=== PATIENT | female | born 1995 | race African-American/Black ===

== ENCOUNTER 2020-01-18 18:43 | Emergency (ER) | payer BC, SELFPAY ==
[2020-01-18] VITALS (10 sets, daily range): BP systolic 96–142; BP diastolic 61–91; PULSE 62–109; RESP 14–28; TEMP 37.1; O2SAT 98–100
--- NOTE | 2020-01-18 18:51 | ED.GENADULT ---
HPI - General Adult General Chief complaint: Unspecified Stated complaint: sob, alcohol withdrawal Time Seen by Provider: 01/18/20 18:46 Source: patient and family Mode of arrival: ambulatory Limitations: no limitations History of Present Illness HPI narrative: Patient is a 24-year-old female with a history of alcohol abuse who presents for evaluation of nausea, vomiting, feeling shaky. Patient reports that she has been drinking 2 glasses of wine to half a pint daily for the past 5 years. Patient reports that she stopped drinking alcohol on Friday in an effort to detox, but patient has been nauseated and vomited most of yesterday with decreased oral intake today as well as feeling generally unwell and shaky. Patient reports myalgias. She denies fever, chills, cough, congestion. She denies any chest pain. No abdominal pain at this point. No dysuria or hematuria. Patient states she had a recent negative test. Patient denies thoughts of hurting herself or hurting others. She recently started sertraline and new anxiety medication. She otherwise feels well supported by her family. Related Data Home Medications Medication Instructions Recorded Confirmed famotidine 20 mg PO DAILY 01/18/20 01/18/20 sertraline 25 mg PO DAILY 01/18/20 01/18/20 valacyclovir [Valtrex] 500 mg PO Q12H 01/18/20 01/18/20 Allergies Allergy/AdvReac Type Severity Reaction Status Date / Time No Known Allergies Allergy Verified 01/18/20 18:53 Review of Systems Review of Systems: Narrative: CONSTITUTIONAL: Denies fever, chills, or sweats. EYES: Denies visual changes, redness, or discharge. ENT: Denies rhinorrhea, congestion, sore throat, or otalgia. CARDIOVASCULAR: Denies chest pain, reports palpitations, denies edema RESPIRATORY: Denies cough or dyspnea. GASTROINTESTINAL: Denies abdominal pain,reports nausea and vomiting GENITOURINARY: Denies dysuria or hematuria. SKIN: Denies rash or itching. MUSCULOSKELETAL: Denies back pain, joint pain, reports myalgias NEUROLOGIC: Denies headache, numbness, or weakness. PSYCHIATRIC: Reports anxiety PMFSH Past Medical History Medical History (Updated 01/18/20 @ 20:26 by Rita Srivastava MD) Alcohol abuse Anxiety Surgical History Surgical History (Updated 01/18/20 @ 19:10 by Rita Srivastava MD) No pertinent past surgical history Social History Social History (Updated 01/18/20 @ 19:11 by Rita Srivastava MD) Smoking status: Never smoker Alcohol intake: former Drinks per week: 20 Substance use: never Living arrangements: with family Gender identity (if verbalized by the patient): Female Exam Narrative: Exam Narrative: GENERAL: Awake, alert, conversant, tearful HEAD: Normocephalic, atraumatic. EYES: PERRLA and EOMI. ENT: Nares clear, no rhinorrhea or epistaxis. Mucous membranes moist. NECK: Supple. CHEST: No respiratory distress, breathing even and non labored HEART: Tachycardic rate, sinus rhythm ABDOMEN:Non distended, non tender EXTREMITIES: Normal range of motion. No edema. SKIN: Warm, dry, no rash. NEURO:No focal deficits. Alert and oriented x3 Course Course Emergency Course: Patient presented to the emergency department for evaluation of nausea, dehydration with recent alcohol abstinence. Patient with mild tachycardia at the time of assessment. Laboratory work-up is reassuring, mild hypokalemia which we were able to replenish orally without vomiting. Patient felt much improved following fluids. Many of her symptoms are due to alcohol withdrawal, no sign of delirium tremens at this point. Pt reassessed and is resting comfortably. Patient will be discharged home with antiemetic, given strict return precautions. Vital Signs Vital signs: Vital Signs Temperature 37.1 C 01/18/20 18:48 Pulse Rate 109 H 01/18/20 18:48 Respiratory Rate 21 H 01/18/20 18:48 Blood Pressure 129/91 H 01/18/20 18:48 Pulse Oximetry 100 01/18/20 18:48 Temperature 37.1 C
--- NOTE | 2020-01-18 19:06 | ECG_ITS ---
Measurements Intervals [place] Rate: 65 P: 50 NC: 150 QRS: 50 QRSD: 84 T: 34 QT: 412 QTc: 431 Interpretive Statements SINUS RHYTHM RSR' IN V1 OR V2, PROBABLY NORMAL VARIANT BORDERLINE T WAVE ABNORMALITY- ANTERIOR LEADS BASELINE WANDER- I, II BORDERLINE ECG Electronically Signed On 01-19-2020 7:13:43 CDT by Josue Purcell D.O.
[2020-01-18 19:25] LABS: Basophils Percent Auto 0.3 % (0.2-1.2); Eosinophils Percent Auto 0.1 % (0-4.4); Hematocrit 37.1 % (37.0-47.0); Hemoglobin 12.4 g/dL (12.0-15.0); Immature Granulocyte Absolute 0.03 K/mm3 (0.00-0.031); Immature Granulocyte Percent A 0.3 % (0-0.5); Lymphocytes Absolute Auto 2.96 K/mm3 (0.9-3.2); Lymphocytes Percent Auto 33.2 % (18.3-44.2); Mean Corpuscular HGB Conc 33.4 g/dl (32-36); Mean Corpuscular Hemoglobin 27.9 pg (26-34); Mean Corpuscular Volume 83.6 fl (80-100); Mean Platelet Volume 9.5 fl (7.4-10.4); Monocytes Absolute Auto 0.5 K/mm3 (0.1-0.6); Monocytes Percent Auto 5.8 % (2.6-8.5); Neutrophils Absolute Auto 5.4 K/mm3 (1.3-6.7); Neutrophils Percent Auto 60.3 % (45.5-73.1); Platelet Count Result 353 k/mm3 (150-375); Red Blood Count 4.44 M/mm3 (4.2-5.4); Red Cell Distribution Width 12.3 % (11.5-14.5); White Blood Count 8.9 K/mm3 (4.5-10.0)
[2020-01-18] MEDS: ONDANSETRON INJ 4 MG/2 ML VIAL IV PUSH (19:28)
[2020-01-18] MEDS: SODIUM CHLORIDE 0.9% IV 1,000 ML 999 ML IV CONT (19:28)
[2020-01-18] MEDS: LORAZEPAM INJ 2 MG/ML VIAL 0.5 MG IV PUSH (19:29)
[2020-01-18 19:37] LABS: Alanine Aminotransferase 13 U/L (4-35); Albumin Level 4.7 g/dL (3.5-5.1); Alkaline Phosphatase 54 U/L (38-126); Aspartate Amino Transferase 22 U/L (14-36); Blood Urea Nitrogen 5 mg/dL (7-17); Carbon Dioxide 21 mmol/L (22-30); Chloride 103 mmol/L (98-107); Estimated Glomerular Filt Rate > 60; Glucose 94 mg/dL (65-105); Lipase 68 U/L (23-300); Magnesium 2.1 mg/dL (1.6-2.3); Potassium 3.1 mmol/L (3.4-5.0); Sodium 136 mmol/L (137-145)
[2020-01-18 20:44] LABS: Add Urine Microscopic? YES; Appearance Urine Clear (Clear); Bacteria Urine Trace /hpf; Bilirubin Urine Negative (Negative); Blood Urine Negative (Negative); Color Urine Straw (Yellow); Glucose Urine UA Negative (Negative); Ketones Urine 1+ mg/dL (Negative); Leukocyte Esterase Ur Negative LEU/UL (Negative); Mucus Urine Rare /lpf; Nitrate Urine Negative (Negative); Protein Urine Negative (Negative); RBC Urine 0-2 /hpf (0-2); Specific Grav Ur 1.005 (1.001-1.035); Squamous Epithelial Cell Urine Moderate /hpf (Few); Urobilinogen Urine Negative mg/dL (<2.0); WBC Urine 0-3 /hpf
[2020-01-18] MEDS: POTASSIUM CHLORIDE 20 MEQ PACKET (FOR LIQUID) 40 MEQ PO (20:46)
== END 2020-01-18 23:18 | disposition home or self-care (01) ==
PROVIDERS: Emergency Provider Emergency Medicine; PCP Physician Assistant
DX: E86.0 Dehydration (principal); F41.9 Anxiety disorder, unspecified
CPT/HCPCS: 36415; 80053; 81001; 81025; 83690; 83735; 84100; 85025; 93005; 96361; 96365; 96366; 96375; 99284; A9270; J2060; J2405; J3411; J3475; J7030; J7121

== ENCOUNTER 2021-07-01 18:15 | Emergency (ER) | payer BC, SELFPAY ==
[2021-07-01 18:24] VITALS: BP 127/93; PULSE 85; RESP 16; TEMP 36.6; O2SAT 99
--- NOTE | 2021-07-01 18:57 | ED.GENADULT ---
HPI - General Adult General Chief complaint: Upper Respiratory Infection Stated complaint: sinus infection Source: patient Mode of arrival: ambulatory Limitations: no limitations History of Present Illness HPI narrative: Patient is a 25-year-old -[place] female who presents to the [facility] via POV for evaluation of a sore throat that began today. She reports sinus pressure and ear pressure as well. She denies taking OTC meds for symptoms. Nothing improves or worsen symptoms. Patient denies known exposure to sick contacts. She is not vaccinated against Covid. Related Data Home Medications Medication Instructions Recorded Confirmed famotidine 20 mg PO DAILY 01/18/20 01/18/20 sertraline 25 mg PO DAILY 01/18/20 01/18/20 valacyclovir [Valtrex] 500 mg PO Q12H 01/18/20 01/18/20 Allergies Allergy/AdvReac Type Severity Reaction Status Date / Time No Known Allergies Allergy Verified 01/18/20 18:53 Review of Systems Review of Systems: Pertinent negatives: fever, chills, poor p.o. intake, myalgias, flu-like symptoms, ear pain/drainage, headache, nasal congestion, rhinorrhea, lymphadenopathy, dizziness, LOC, inability to swallow, drooling, hoarseness, halitosis, abdominal pain, nausea, vomiting, diarrhea, cough, wheezing, sob, chest pain, heart murmurs, and heart palpations. PMFSH Past Medical History Medical History Alcohol abuse Anxiety Surgical History Surgical History No pertinent past surgical history Social History Social History Smoking status: Never smoker Alcohol intake: former Drinks per week: 20 Substance use: never Gender identity (if verbalized by the patient): Female Comments I have reviewed and agree with the patient's past medical, surgical, social, and family hx as documented by the RN. There is no relevant family history pertinent to the presenting complaint. Exam Narrative: GENERAL: Well-appearing, well-nourished, and in no acute distress. HEAD: Normocephalic, atraumatic. Moderate maxillary sinus tenderness appreciated upon palpation. No facial swelling appreciated. EYES: PERRLA and EOMI. No evidence of erythema, swelling, or drainage. ENT: Right TM is severely erythematous although according to patient this is a abnormality from childhood. Left TM is normal. Bilateral external ears and ear canals normal. No TM perforation. Nares clear, no rhinorrhea or epistaxis. Bilateral turbinates without erythema/ swelling. Mucous membranes moist and pink. Uvula is midline without erythema and swelling. No evidence of petechial rash, cobblestoning, lesions, ulcers, erythema, swelling, exudates, peritonsillar abscess, tenting, or drooling. Breath odor and voice normal. NECK: Supple. No Lymphadenopathy or nuchal rigidity appreciated. CHEST: Bilateral lung rutherford are clear to auscultation. No respiratory distress. No evidence of cough or pleuritic cp upon examination. HEART: Regular rate and rhythm. No murmur, gallop, or rub heard. EXTREMITIES: Normal range of motion. No edema. SKIN: Warm, dry, no rash. NEURO: No focal deficits. Alert and oriented x3. Course Vital Signs Vital signs: Vital Signs Temperature 97.8 F 07/01/21 18:24 Pulse Rate 85 07/01/21 18:24 Respiratory Rate 16 07/01/21 18:24 Blood Pressure 127/93 H 07/01/21 18:24 Pulse Oximetry 99 07/01/21 18:24 Temperature 97.8 F 07/01/21 18:24 Pulse Rate 85 07/01/21 18:24 Respiratory Rate 16 07/01/21 18:24 Blood Pressure 127/93 H 07/01/21 18:24 Pulse Oximetry 99 07/01/21 18:24 Due to an elevated blood pressure, I had a detailed discussion with the patient and/or guardian regarding the need for follow-up with their primary care provider within the next 3-4 days. Patient verbalized understanding and agreed. Medical De
== END 2021-07-01 19:07 | disposition home or self-care (01) ==
PROVIDERS: Emergency Provider Nurse Practitioner Family; PCP Physician Assistant
DX: J06.9 Acute upper respiratory infection, unspecified (principal); F41.9 Anxiety disorder, unspecified
CPT/HCPCS: 87081; 87880; 99213; G0463

== ENCOUNTER 2021-07-11 14:10 | Emergency (ER) | payer BC, SELFPAY ==
[2021-07-11 14:22] VITALS: BP 116/77; PULSE 96; RESP 16; TEMP 37.1; O2SAT 100
--- NOTE | 2021-07-11 16:41 | ED.GENADULT ---
HPI - General Adult General Chief complaint: Upper Respiratory Infection Stated complaint: sinus infection Source: patient Mode of arrival: ambulatory Limitations: no limitations History of Present Illness HPI narrative: Patient is a 25-year-old -Gabonese female who presents to the [facility] via POV for evaluation of a sinus problem that has been present for 2 weeks. Additionally, she reports sinus pain and pressure, nasal congestion, rhinorrhea, and headaches. Additionally, she reports relief with Mucinex and prednisone. She was seen in this facility for similar problem approximately 2 weeks ago and prescribed prednisone at that time. Nothing worsens symptoms. Patient denies known exposure to sick contacts. She is not vaccinated against Covid. Related Data Home Medications Medication Instructions Recorded Confirmed acyclovir 400 mg PO DAILY 07/11/21 07/11/21 Allergies Allergy/AdvReac Type Severity Reaction Status Date / Time No Known Allergies Allergy Verified 07/11/21 14:13 Review of Systems Review of Systems: Denies history of COPD, bronchitis, asthma, and pneumonia. Denies current/past tobacco use. Pertinent negatives: fever, sweats, chills, change in appetite, fatigue, skin color changes, headache, dizziness, lymphadenopathy, ear pain/drainage, chest pain, heart murmurs, heart palpitations, shortness of breath, wheezing, cyanosis, hemoptysis, hoarseness, orthopnea, pleuritic pain, nausea, vomiting, diarrhea, and myalgias. PMFSH Past Medical History Medical History Alcohol abuse Anxiety Surgical History Surgical History No pertinent past surgical history Social History Social History Smoking status: Never smoker Alcohol intake: former Drinks per week: 20 Substance use: never Gender identity (if verbalized by the patient): Female Exam Narrative: GENERAL: Well-appearing, well-nourished, and in no acute distress. HEAD: Normocephalic, atraumatic. Moderate maxillary and frontal sinus tenderness appreciated upon palpation. No facial swelling appreciated. EYES: PERRLA and EOMI. No evidence of erythema, swelling, or drainage. ENT: Bilateral turbinates are moderately swollen. Bilateral external ears and ear canals normal. Bilateral TMs are normal.No TM perforation. Nares clear, no rhinorrhea or epistaxis. Bilateral turbinates without erythema. Mucous membranes moist and pink. Uvula is midline without erythema and swelling. No evidence of petechial rash, cobblestoning, lesions, ulcers, erythema, swelling, exudates, peritonsillar abscess, tenting, or drooling. Breath odor and voice normal. NECK: Supple. No Lymphadenopathy or nuchal rigidity appreciated. CHEST: Bilateral lung rutherford are clear to auscultation. No respiratory distress. No evidence of cough or pleuritic cp upon examination. HEART: Regular rate and rhythm. No murmur, gallop, or rub heard. EXTREMITIES: Normal range of motion. No edema. SKIN: Warm, dry, no rash. NEURO: No focal deficits. Alert and oriented x3. Course Vital Signs Vital signs: Vital Signs Temperature 98.7 F 07/11/21 14:22 Pulse Rate 96 07/11/21 14:22 Respiratory Rate 16 07/11/21 14:22 Blood Pressure 116/77 07/11/21 14:22 Pulse Oximetry 100 07/11/21 14:22 Temperature 98.7 F 07/11/21 14:22 Pulse Rate 96 07/11/21 14:22 Respiratory Rate 16 07/11/21 14:22 Blood Pressure 116/77 07/11/21 14:22 Pulse Oximetry 100 07/11/21 14:22 Reviewed Medical Decision Making Differential Diagnosis Differential Diagnosis: Allergic rhinitis, ABRS, acute viral sinusitis, strep pharyngitis, nasopharyngitis, bronchitis, pneumonia, AOM, otitis externa, viral URI, influenza Medical Records Medical records reviewed: Yes I reviewed the external patient's medical records
== END 2021-07-11 14:52 | disposition home or self-care (01) ==
PROVIDERS: Emergency Provider Nurse Practitioner Family; PCP Physician Assistant
DX: J01.90 Acute sinusitis, unspecified (principal)
CPT/HCPCS: 99213; G0463

== ENCOUNTER 2021-12-24 11:27 | Outpatient (CLI) | payer BC, SELFPAY ==
--- NOTE | ~2021-12-24 | US_ITS ---
EXAMINATION: US OB /maternal detail DATE: 12/24/2021 12:08 INDICATION: Assess anatomy during second trimester . TECHNIQUE: Multiple obstetric sonographic images performed. FINDINGS: There is a single living fetus in breech presentation. The placenta is anterior and low-lying with c audal margin 1.2 cm from the internal cervical os. Amniotic fluid volume is subjectively normal. Fet al heart rate of 142 beats per minute. The following anatomy was identified as normal: Ventricles, choroid plexus, falx and cava septum pellucidum Cerebellum and cisterna magna Nuchal fold Upper lip Spine Four-chamber heart. The left and right ventricular outflow tract views are of insufficient resolution for diagnostic assessment. Diaphragm Stomach Kidneys Bladder 3 vessel cord and cord insertion Bilateral upper and lower extremities including hands and feet The following biometric data were obtained: BPD: 4.4 cm -> 19 weeks 2 days Head circumference: 16.3 cm -> 19 weeks 0 days Abdominal circumference: 13.3 cm -> 18 weeks 6 days Femur length: 2.7 cm -> 18 weeks 1 days These measurements are concordant. Head circumference to abdominal circumference ratio: 1.22 (normal range 1.09-1.26). Estimated weight: 246 g (+/-) 37 g. or 9 oz. (+/-) 1o oz. IMPRESSION: 1. Single living fetus with breech presentation with heart rate of 142 bpm. 2. Gestational age by ultrasound of 18 weeks 6 day(s) (+/-) 1 week 2 day(s) with ultrasound estimat ed date of delivery (FERNANDO) of 05/21/2022. Estimated weight is 45th percentile by Hadlock criteria when 05/23/2022 is used as the FERNANDO. Please correlate with clinical information or earlier ultrasounds for most accurate FERNANDO. 3. Normal survey aside from nondiagnostic left and right ventricular outflow tract views. 4. Low-lying anterior placenta with caudal margin 1.2 cm from the internal cervical os. Reviewed, dictated and finalized at location B. IMPRESSION: 1. Single living fetus with breech presentation with heart rate of 142 b pm. 2. Gestational age by ultrasound of 18 weeks 6 day(s) (+/-) 1 week 2 day(s) w ith ultrasound estimated date of delivery (FERNANDO) of 05/21/2022. Estimated w eight is 45th percentile by Hadlock criteria when 05/23/2022 is used as the FERNANDO. Please correlate with clinical information or earlier ultrasounds for most accu rate FERNANDO. 3. Normal survey aside from nondiagnostic left and right ventricular outf low tract views. 4. Low-lying anterior placenta with caudal margin 1.2 cm from the internal cerv ical os.
== END 2021-12-24 11:28 ==
PROVIDERS: Visit Provider Obstetrics & Gynecology Gynecology
DX: O44.42 Low lying placenta NOS or without hemorrhage, second trimester (principal); Z3A.18 18 weeks gestation of pregnancy
CPT/HCPCS: 76805

== ENCOUNTER → 2022-01-23 10:53 | Outpatient (CLI) | payer BC, SELFPAY ==
--- NOTE | ~2022-01-23 | US_ITS ---
EXAMINATION: US OB limited DATE: 01/23/2022 11:19 INDICATION: Low-lying placenta, assess ventricular outflow tracts, second trimester TECHNIQUE: Real-time ultrasound of the pelvis was performed. The interpreting radiologist was not pre sent for the study. COMPARISON: 12/24/2021 FINDINGS: There is a single living fetus in breech presentation. The placenta is anterior and 2.3 cm from the internal cervical os. cardiac activity and movement are noted. heart rate is 146 beats per minute (bpm). The amniotic fluid index is subjectively normal. The ventricular outfl ow tracts of the heart appear normal. IMPRESSION: 1. Single living fetus in breech presentation. 2. Normal placenta position. 3. Normal-appearing ventricular outflow tracts of the heart. Reviewed, dictated and finalized at location A.
== END ==
PROVIDERS: Visit Provider Obstetrics & Gynecology Gynecology
DX: O44.42 Low lying placenta NOS or without hemorrhage, second trimester (principal); Z3A.18 18 weeks gestation of pregnancy
CPT/HCPCS: 76815

== ENCOUNTER → 2022-02-20 13:52 | Outpatient (CLI) | payer BC, SELFPAY ==
--- NOTE | ~2022-02-20 | US_ITS ---
EXAMINATION: US OB limited DATE: 02/20/2022 14:16 INDICATION: Low-lying placenta during second trimester TECHNIQUE: Real-time ultrasound of the pelvis was performed. The interpreting radiologist was not pre sent for the study. COMPARISON: 01/23/2022 FINDINGS: There is a single living fetus in vertex presentation. The placenta is anterior and not low-lying wi th caudal margin >4 cm from the internal cervical os. heart rate is 154 beats per minute (bpm). The amniotic fluid volume is subjectively normal. IMPRESSION: 1. Single living fetus in vertex presentation with heart rate of 154 bpm. 2. Normal anterior placenta which is not low-lying with caudal margin >4 cm from the internal cervica l os Reviewed, dictated and finalized at location B. IMPRESSION: 1. Single living fetus in vertex presentation with heart rate of 154 bpm . 2. Normal anterior placenta which is not low-lying with caudal margin >4 cm fro m the internal cervical os
== END ==
PROVIDERS: PCP Physician Assistant; Visit Provider Obstetrics & Gynecology Gynecology
DX: O44.42 Low lying placenta NOS or without hemorrhage, second trimester (principal); Z3A.28 28 weeks gestation of pregnancy
CPT/HCPCS: 76815

== ENCOUNTER 2022-03-30 06:36 | Outpatient (RCR) | payer BC, SELFPAY ==
[2022-03-30 07:19] VITALS: BP 133/73; PULSE 85
== END 2022-06-19 09:58 | disposition home or self-care (01) ==
LOC: ANHOBOP 06:36
PROVIDERS: PCP Physician Assistant; Visit Provider Obstetrics & Gynecology Gynecology
DX: O36.8130 Decreased fetal movements, third trimester, not applicable or unspecified (principal); Z3A.32 32 weeks gestation of pregnancy
CPT/HCPCS: 59025

== ENCOUNTER 2022-05-19 15:18 | Inpatient (IN) | payer BC, SELFPAY ==
[2022-05-19] VITALS (85 sets, daily range): BP systolic 95–153; BP diastolic 43–122; PULSE 34–212; TEMP 36.3–36.9; O2SAT 97–100; BMI 33.9
[2022-05-19 18:17] LABS: Basophils Percent Auto 0.2 % (0.2-1.2); Eosinophils Percent Auto 0.3 % (0-4.4); Hemoglobin 12.2 g/dL (12.0-15.0); Immature Granulocyte Absolute 0.07 K/mm3 (0.00-0.031); Immature Granulocyte Percent A 0.7 % (0-0.5); Lymphocytes Absolute Auto 2.03 K/mm3 (0.9-3.2); Mean Corpuscular Hemoglobin 27.2 pg (26-34); Mean Corpuscular Volume 82.6 fl (80-100); Monocytes Absolute Auto 0.6 K/mm3 (0.1-0.6); Monocytes Percent Auto 5.7 % (2.6-8.5); Neutrophils Absolute Auto 7.4 K/mm3 (1.3-6.7); Neutrophils Percent Auto 73.1 % (45.5-73.1); Platelet Count Result 244 k/mm3 (150-375); Red Blood Count 4.48 M/mm3 (4.2-5.4); Red Cell Distribution Width 15.6 % (11.5-14.5); White Blood Count 10.2 K/mm3 (4.5-10.0)
--- NOTE | 2022-05-19 18:23 | P.PNAN_ITS ---
Anes - Eval Pre Procedure Procedure: labor epidural Date/Time: 05/19/22 18:23 Pre Op Diagnosis: Contractions Patient Data Age: 26 Gender: F Height: Weight: Allergies Allergy/AdvReac Type Severity Reaction Status Date / Time No Known Allergies Allergy Verified 07/11/21 14:13 Home Medications Medication Instructions Recorded Confirmed Type acyclovir 400 mg tablet 400 mg PO DAILY 07/11/21 03/30/22 History ergocalciferol (vitamin D2) 1,250 50,000 unit PO WEEKLY 03/30/22 03/30/22 History mcg (50,000 unit) capsule (Vitamin D2) ferrous sulfate 325 mg (65 mg 325 mg PO DAILY 03/30/22 03/30/22 History iron) tablet hydroxyzine pamoate 25 mg capsule 25 mg PO HS 03/30/22 03/30/22 History vit no.95-ferrous 1 tablet PO DAILY 03/30/22 03/30/22 History fumarate 28 mg-folic acid 800 mcg tablet () sertraline 50 mg tablet 50 mg PO DAILY 03/30/22 03/30/22 History Laboratory Tests 05/19/22 05/19/22 18:07 18:07 WBC Pending RBC Pending Hgb Pending Hct Pending MCV Pending MCH Pending MCHC Pending RDW Pending Plt Count Pending MPV Pending Immature Gran % (Auto) Pending Neut % (Auto) Pending Lymph % (Auto) Pending [place] % (Auto) Pending Eos % (Auto) Pending Baso % (Auto) Pending Lymph # (Auto) Pending [place] # (Auto) Pending Eos # (Auto) Pending Baso # (Auto) Pending Abs Immat Gran (auto) Pending Absolute Neuts (auto) Pending Absolute Nucleated RBC Pending Nucleated RBC % Pending RPR Pending Patient hx anesthesia problems: none Family hx anesthesia problems: none Results Review: All pre-operative results and documents have been reviewed as part of the pre- operative evaluation. [facility] Past Medical History Medical History Alcohol abuse Anxiety Surgical History Surgical History No pertinent past surgical history Family History Family History Mother Hypertension Fibroids Social History Social History Smoking status: Never smoker Alcohol intake: former Drinks per week: 20 Substance use: never Gender identity (if verbalized by the patient): Female Spiritual care concerns: No Exam Day of Procedure 05/19/22 18:23 Patient weight: obese Heart: regular rate and rhythm Lungs: normal air movement Airway: Mallampati scale class III Neurological: alert and oriented
--- NOTE | 2022-05-19 19:12 | LDADM ---
This patient, Kira Carroll, was admitted to Labor/Delivery/Recovery 107 on 05/19/22 at 15:18. Plans for labor, pain management and were discussed with patient. Patient/family oriented to hospital policies and general routines including ID bracelet, bed and alarms, visiting hours, pain management, procedures, bathroom and other care routines, personal items, smoking policy, room service/diet and guest tray routines, infant security routines, and visiting hours. Patient/Family are encouraged to report perceived risks to care and to ask questions if they do not understand what they are told or what they should do. See OBIX for further documentation.
[2022-05-19] MEDS: LACTATED RINGERS 1,000 ML 125 ML IV CONT ×2 (20:22→21:01)
[2022-05-19] MEDS: ONDANSETRON INJ 4 MG/2 ML VIAL IV PUSH (22:05)
[2022-05-20] VITALS (307 sets, daily range): BP systolic 95–163; BP diastolic 46–106; PULSE 61–209; RESP 18; TEMP 37–39.3; O2SAT 91–100
[2022-05-20] MEDS: OXYTOCIN 30 UNITS/NS 500 ML 30 UNITS/500 ML BAG IV CONT (01:07)
[2022-05-20] MEDS: LACTATED RINGERS 1,000 ML 125 ML IV CONT ×2 (06:55→14:25)
[2022-05-20 07:33] LABS: Rapid Plasma Reagin Non-Reactive (NonReactive)
--- NOTE | 2022-05-20 07:33 | WPDOBADMIT ---
Obstetrics - Admit Note Admission Note: record reviewed. No pertinent additions to the history and/or any subsequent changes in the physical findings that are not consistent with the expected course of the were found. Additions to the history and/or subsequent changes in the physical findings follow. Pt had SROM with thin meconium stained amniotic fluid.
--- NOTE | 2022-05-20 07:35 | PM.OBPNLAB ---
Pain Control Date/time seen: 05/20/22 07:25 Pain control: epidural Pelvic Exam Comments: 7cm per RN's previous exam. Contractions Monitor mode: Internal Contraction pattern: Regular Contraction intensity: Strong/Firm Status status: Category ll Assessment and Plan Assessment: active labor Plan: continuous present management Comments: Tosha is comfortable, resting on her right side with a peanut ball between her knees. Her partner and sister are present and supportive. She denies pain, feels occasional rectal pressure. Pitocin is currently off. Discussed plan of care and normal expectations for labor and . Anticipate vaginal .
[2022-05-20] MEDS: ACETAMINOPHEN 500 MG TABLET 1000 MG PO (11:10)
[2022-05-20] MEDS: AMPICILLIN 2 GM/NS 100 ML 2 GM/100 ML BAG IVPB (14:23)
[2022-05-20] MEDS: OXYTOCIN 30 UNITS/NS 500 ML 30 UNITS/500 ML BAG 125 UNITS IV CONT (18:59)
--- NOTE | 2022-05-20 19:07 | PM.OBPNLAB ---
Pain Control Date/time seen: 05/20/22 1700 Pain control: epidural Pelvic Exam Dilation (cm): 10 Contractions Monitor mode: Internal Contraction pattern: Regular Contraction intensity: Strong/Firm Status status: Category ll Assessment and Plan Comments: CNM to bedside at 1552. Pt not pushing at that time. Discussed plan of care with Kira, her partner, and a family member. Discussed option of continuing to push and attempting different pushing and positioning maneuvers, or electing for section. Pt desired to continue pushing. Assisted her in repositioning to hands and knees. A sheet was draped across her buttocks and gentle tension applied. CNM an RN gently alternated pressure on either side of the sheet to assist the maternal hips in a quick rocking motion. After 5-6 contractions, she was then repositioned onto her back. maternal pushing efforts resumed with bringing her ankles together in a butterfly portion position. Discussed updates with maternal pushing efforts with Dr. Elena on the telephone at about 1700. The fetus continued to be in occiput posterior position but descent continued with maternal pushing efforts.
--- NOTE | 2022-05-20 19:18 | PM.OBPRVD ---
OB - Delivery Note Procedure Delivery date: 05/20/22 Procedure: Intrapartal Events: Other (Maternal fever) Delivery augmentation: Pitocin Delivery monitor: External FHT, External Uterine and Internal Uterine Route of delivery: Episiotomy description: None Laceration Description: Perineal - 2nd Degree and Vaginal (1st degree) Delivery repair: vicryl Specimen: Yes Quantitative Blood Loss (ml): 150 Anesthesia type: Epidural Disposition: Floor Complications: Maternal fever. Meconium. Baby Date of : 05/20/22 Time of : 18:24 Weeks of gestation at delivery: 39 Infant gender: Female Weight (pounds): 6 Weight (ounces): 14 presentation: vertex position: Right Occiput Posterior Placenta delivery description: Spontaneous (Succenturiate lobe) Cord Vessel Description: 3 Vessels score one minute: 8 score five minutes: 9 Narrative: of a viable female . Baby born in the ROP position. placed immediately on the maternal abdomen and was dried and stimulated. The cord was doubly clamped and cut and the infant was transferred to the warmer for further care by the Peds team.
--- NOTE | 2022-05-20 19:26 | PM.OBDSVD ---
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 - Other specified abnormal immunological findings in serum Status: Acute OB - DS: Summary Hospital Course Hospital Course: uncomplicated OB Procedures : Ultrasound OB Procedures Intrapartum: Spontaneous Vag Delivery and Other (antibiotics) OB Procedures: : None Peripartum Data Delivery Method: Natural Vaginal Laceration Description: Perineal - 2nd Degree and Vaginal - 1st Degree Episiotomy description: None complications: none Status at Discharge Functional status at discharge: independent ambulation Overall status at discharge: patient is progressing back to baseline Time Spent with Patient Time attestation: Total time spent providing and/or coordinating discharge services: Exam Narrative: Alert and oriented. Mood is pleasant and cooperative. Urinating without difficulty. Denies passing any large clots. Perineum with minimal edema. Const: General: no acute distress Orientation/consciousness: patient oriented x3 Limitations: no limitations Resp: Effort & Inspection: normal respiratory effort Auscultation: clear to auscultation bilaterally Cardio: Rate: regular rate GI: Inspection: normal to inspection Neuro: General: patient oriented x3 Extrem: General: normal to inspection Psych: Appearance: grossly normal Mental Status: mental status grossly normal Affect: normal affect Thought process: Normal thought process present DS: Data Data Completed and Pending Labs on day of discharge: Labs from last 24 hours 05/19/22 18:07 RPR Non-reactive Discharge Plan Discharge Attending physician on discharge: Jeane Elena Discharging Clinician: Izzy Manriquez Anticipated Discharge Date/Time: 05/22/22 19:29 Patient Disposition: Home, Self-Care Activity: may shower Diet: as tolerated Patient Instructions: Antibiotic Form Stand Alone Forms: General Discharge Information Follow-up/Referrals: Izzy Manriquez, CNM [Certified Nurse Court Supervisor] - (6 week post follow up) Discharge Medications: New polysaccharide iron complex 150 mg iron Capsule 150 mg PO BIDWM 30 Days Qty: 60 0RF docusate sodium 100 mg Capsule 100 mg PO BID 30 Days Qty: 60 0RF ibuprofen 600 mg Tablet 600 mg PO Q6H PRN (Reason: Cramping) 30 Days Qty: 45 0RF valacyclovir [Valtrex] 500 mg Tablet 500 mg PO QHS 90 Days Qty: 90 3RF norethindrone (contraceptive) [Ortho Micronor] 0.35 mg tablet 0.35 mg PO DAILY 90 Days Qty: 84 3RF Continued ferrous sulfate 325 mg (65 mg iron) Tablet 325 mg PO DAILY sertraline 50 mg Tablet 50 mg PO DAILY ergocalciferol (vitamin D2) [Vitamin D2] 1,250 mcg (50,000 unit) Capsule 50,000 unit PO WEEKLY 90 Days Qty: 90 3RF Rx Instructions: Takes every Friday PNV cmb#95-ferrous fumarate-FA [] 28 mg iron- 800 mcg Tablet 1 tablet PO DAILY 90 Days Qty: 90 0RF Discontinued acyclovir 400 mg tablet 400 mg PO BID hydroxyzine pamoate 25 mg Capsule 25 mg PO HS Date of admission: 05/19/22 15:18 Primary Care Provider: Aixa,Bev Admitting Provider: Jeane Elena Attending physician on admission: Jeane Elena Condition: Stable
[2022-05-20] MEDS: IBUPROFEN 600 MG TABLET PO (20:27)
[2022-05-20] MEDS: BENZOCAINE 20% AER SPR (*SP) 56 GM CAN 1 SPRAY TOPICAL (20:34)
[2022-05-20] MEDS: WITCH HAZEL 40 PADS 1 PAD TOPICAL (20:34)
[2022-05-20 20:36] LABS: Barbiturate Screen Urine Negative (Negative); Benzodiazepines Screen Urine Negative (Negative)
[2022-05-20 20:46] LABS: Cannabinoid Screen Urine Negative (Negative); Cocaine Screen Urine Negative (Negative); Methadone Screen Urine Negative (Negative); Opiate Screen Urine Negative (Negative); Phencyclidine Screen Urine Negative (Negative)
[2022-05-20 21:01] LABS: Amphetamine Screen Urine Negative (Negative)
[2022-05-20] MEDS: ACETAMINOPHEN 325 MG TABLET 650 MG PO (21:40)
--- NOTE | 2022-05-20 22:02 | OBPPTRN ---
Patient transferred to post room #281 via W/C. Support person present. Oriented to unit, room, information board, rooming in, admission packet and security measures. Patient verbalizes understanding.
[2022-05-20] MEDS: ZOLPIDEM TARTRATE (*CRX) 5 MG TABLET PO (23:24)
[2022-05-21] MEDS: IBUPROFEN 600 MG TABLET PO ×4 (01:11→23:45)
[2022-05-21 03:55] VITALS: BP 135/74; PULSE 92; RESP 18; TEMP 36.8
[2022-05-21 07:40] VITALS: BP 132/78; PULSE 84; RESP 16; TEMP 36.7; O2SAT 100
[2022-05-21] MEDS: WITCH HAZEL 40 PADS 1 PAD TOPICAL (07:41)
[2022-05-21] MEDS: MULTIVIT/MIN/PREN/FOL AC/IRON TABLET 1 TAB PO (07:42)
[2022-05-21] MEDS: DOCUSATE SODIUM 100 MG CAPSULE PO ×2 (07:42→16:11)
[2022-05-21] MEDS: FERROUS SULFATE 324 MG TABLET PO (07:42)
[2022-05-21] MEDS: SERTRALINE HCL 50 MG TABLET PO (07:43)
[2022-05-21] MEDS: ACETAMINOPHEN 325 MG TABLET 650 MG PO ×2 (07:46→16:12)
--- NOTE | 2022-05-21 07:52 | PM.OBPNVD ---
OB - PN: Subj Subjective Date/time seen: 05/21/22 07:52 Patient comments: no complaints and pain well controlled baby status: doing well OB - PN: Obj Data Labs CBC & Chem 7: 05/19/22 18:07 Labs: Laboratory Results - last 24 hr 05/20/22 18:00 Urine Opiates Screen Negative Urine Methadone Screen Negative Ur Barbiturates Screen Negative Ur Phencyclidine Scrn Negative Ur Amphetamine Screen Negative U Benzodiazepines Scrn Negative Urine Cocaine Screen Negative U Cannabinoids Screen Negative OB - PN A/P Plan day: 1 Plan: routine care Comments: BP's elevated No PIH sx Time Spent With Patient Time: Total time spent is greater than 50% in coordination of care (as documented) at patient's floor/unit and/or counseling patient: Exam : Bimanual exam- vagina & uterus: other (Uterus firm, nt @U)
--- NOTE | 2022-05-21 08:36 | WPDANLDPN2 ---
Anes-Prog Note L&D Date/Time: 05/21/22 08:36 Comfortable throughout: labor and delivery Neuraxial method: epidural Epidural/Spinal procedure site: clean & non-tender Neuro status: Neuro function grossly intact. Cardiovascular status: normal Respiratory status: normal Airway patency: baseline Mental status: baseline Post-Op hydration status: normal Vital Signs: Last Vital Signs Temp 36.8 C 05/21/22 03:55 Pulse 92 05/21/22 03:55 Resp 18 05/21/22 03:55 BP 135/74 05/21/22 03:55 Pulse Ox 100 05/20/22 18:58 O2 Del Method Room Air 05/20/22 22:20 Pain score (VAS): 10/01 I/O: Intake & Output 05/20/22 05/21/22 05/21/22 23:59 07:59 15:59 Intake Total 1500 Output Total 208 Balance 1292 Post-procedural complaints: none Patient feedback: Patient satisfied with anesthetic care.
[2022-05-21 09:27] LABS: Hematocrit 29.9 % (37.0-47.0); Hemoglobin 9.8 g/dL (12.0-15.0)
--- NOTE | 2022-05-21 10:09 | PC.NURSE ---
5526 - Introductions were made to father of the baby. Mother is sleeping. Resources provided for inpatient and outpatient services using a resource guide and mom/baby guide. Father of baby voiced understanding of information and was urge to call if mother requests assistance with or has question or concerns with milk production, pumping, or feeding her . Reported to primary RN.
--- NOTE | 2022-05-21 11:42 | PCCCNOTE ---
Care Coordination. Patient referred to CC for possible mom/baby bonding, history depression, and history of marijuana use in per RN. Pt. is negative for any substances on admission. Met with pt. and family member at bedside. Pt. holding baby and reports interested in breast feeding baby. She was interested in any information on baby care such as bathing as well. RN reports there is a video for her to watch that she will provide. She appears to be bonding and interested in infant and care. Pt. interested and given information on centers including WIC as she wants to see if she would qualify for services. She plans to return home with her and baby. She reports having all necessary baby care items and good family support. She sees a counselor and is on sertaline that she plans to continue for her depression. She reports feeling good today and encouraged her to continue to watch for signs of post and to notify her doctor. Pt. very receptive to this. She denies further CC needs.
[2022-05-21 12:01] VITALS: BP 134/85; PULSE 90; RESP 18; TEMP 36.9; O2SAT 100
--- NOTE | 2022-05-21 15:10 | PC.NURSE ---
[id number] Mother called the desk for assistance. RN entered the room to assist mother with . is swaddled in the bassinet. Mother is undecided on how she wants to feed her and has decided to go to the restroom. Encouraged understanding of the benefits of skin to skin (unwrapping and placing vertically on her chest) when she gets back from the restroom. [id number] RN to the room and educates the parents on responsive feeding, how to watch for early feeding signs, frequency of feeding on demand about every 8-12 times in 24 hours (every 2-3 hours), milk production, duration of feeding, signs of adequate intake/output and how to record on the feeding sheet. cries and mother believes her is hungry. A very full diaper of urine and stool is changed, then infant placed back upright between mother's breast. After a few minutes demonstrates squirming and exploration of mother's chest going to the breast. Reviewed positioning and ear, shoulder, hip alignment, supporting the breast, asymmetrical latch (off-center), and leading with the chin with a big open side gape. Infant latched optimally to the left breast in cross cradle position. After 5 minutes detaches, placed vertically, and burps. latches optimally to the right breast using cross cradle. Education given to mother of how to visualize suck/swallow ratios and listen for drinking at the breast. Infant was able to maintain latch without discomfort to mother. Nipple care reviewed with optimal latch and good positioning. Reviewed good handwashing when or touching the breast/nipples to prevent infection. Resources used to facilitate learning were used with the visual handouts, tool, mom and baby guide. Mother voiced understanding of responsive feedings, stimulating with skin to skin, hand expressed colostrum, massage touch, talking to infant to encourage if it has been 2 -3 hours since the start of the last , to call if infant does not latch , difficulty waking, latching or there is discomfort with . Reported to the primary RN.
[2022-05-21 15:45] VITALS: BP 139/86; PULSE 90; RESP 16; TEMP 36.6; O2SAT 100
[2022-05-21] MEDS: POLYSACCHARIDE IRON COMPLEX 150 MG CAPSULE PO (16:11)
[2022-05-21 20:38] VITALS: BP 123/75; PULSE 95; RESP 18; TEMP 36.3; O2SAT 100
[2022-05-21] MEDS: valACYclovir HCL 500 MG TABLET PO (21:01)
[2022-05-21] MEDS: ZOLPIDEM TARTRATE (*CRX) 5 MG TABLET PO (23:45)
--- NOTE | 2022-05-22 07:46 | PM.OBPNVD ---
OB - PN: Subj Subjective Date/time seen: 05/22/22 07:40 Patient comments: pain well controlled Eagle baby status: other (At bedside. Receiving IV antibiotics. , pumping, formula feeding. ) Eagle feeding status: breast and bottle feeding OB - PN: Obj Data Labs CBC & Chem 7: 05/21/22 09:15 Labs: Laboratory Results - last 24 hr 05/21/22 09:15 Hgb 9.8 L Hct 29.9 L OB - PN A/P Plan day: 2 Plan: discharge home Time Spent With Patient Time: Total time spent is greater than 50% in coordination of care (as documented) at patient's floor/unit and/or counseling patient: Review of Systems Review of Systems: All systems reviewed & are unremarkable except as noted in HPI and below Exam Narrative: Awoke to CNM entry to room. Mood is pleasant and cooperative, normally fatigued. Urinating without difficulty. Denies passing any large clots. Perineum with minimal edema. +Bonding. Const: General: no acute distress Orientation/consciousness: patient oriented x3 Limitations: no limitations Resp: Effort & Inspection: normal respiratory effort Auscultation: clear to auscultation bilaterally Cardio: Rate: regular rate GI: Inspection: normal to inspection Neuro: General: patient oriented x3 Extrem: General: normal to inspection Psych: Appearance: grossly normal Mental Status: mental status grossly normal Affect: normal affect Thought process: Normal thought process present
[2022-05-22 07:55] VITALS: BP 129/83; PULSE 87; RESP 18; TEMP 36.8; O2SAT 100
[2022-05-22] MEDS: MULTIVIT/MIN/PREN/FOL AC/IRON TABLET 1 TAB PO (09:36)
[2022-05-22] MEDS: POLYSACCHARIDE IRON COMPLEX 150 MG CAPSULE PO (09:36)
[2022-05-22] MEDS: SERTRALINE HCL 50 MG TABLET PO (09:37)
[2022-05-22] MEDS: DOCUSATE SODIUM 100 MG CAPSULE PO (09:37)
--- NOTE | 2022-05-22 10:42 | PC.NURSE ---
[id number] Mother led the conversation with her experience and plan to feed her so far and her ability to independently latch optimally without discomfort at times and will continue with the plan of attempting to breastfeed, pump, and supplement to feed infant. Reminded parents to use good handwashing technique to prevent infection. Mother is feeding appropriately for growth of infant and understands stimulating infant to eat if needed. Infant has had appropriate feedings in the last 24 hours meets the outcomes for weight, output and jaundice at this time. Mother states she is confident to continue feeding her infant at home, knows when to call for assistance and denies any additional assistance or education at this time. Reinforced understanding of milk production, transition of milk, signs of adequate intake, prevention/relief of engorgement, responsive after visualizing feeding cues, the different methods of stimulating infant to breastfeed 2-3 hours after the start of the last feeding, community resources, medication information reviewed per [facility] and when to call a provider using the resource of the mom and baby guide/[facility] website. Mother voiced understanding of the education shared. Reported to the primary RN.
--- NOTE | 2022-05-22 13:40 | PC.NURSE ---
Patient discharged to a no-care bed at this time
[2022-05-25 11:38] VITALS: BP 124/87; PULSE 80; RESP 20; TEMP 36.8; O2SAT 100
== END 2022-05-22 13:40 | disposition home or self-care (01) | DRG 806 ==
LOC: ANHLDR 05-20 19:33 → ANHOB2 05-20 22:12
PROVIDERS: Advanced Practice Midwife; Admitting Provider Obstetrics & Gynecology Gynecology; PCP Physician Assistant; Visit Provider Obstetrics & Gynecology Gynecology
DX: O77.0 Labor and delivery complicated by meconium in amniotic fluid (principal); O75.2 Pyrexia during labor, not elsewhere classified; Z37.0 Single live birth; Z3A.39 39 weeks gestation of pregnancy; O36.8330 Maternal care for abnormalities of the fetal heart rate or rhythm, third trimester, not applicable or unspecified; O70.1 Second degree perineal laceration during delivery; O76 Abnormality in fetal heart rate and rhythm complicating labor and delivery
CPT/HCPCS: 36415; 80307; 84112; 85014; 85018; 85025; 86592; 86850; 86900; 86901; 88307; A9270; J0290; J1580; J2405; J2590; J2795; J7120

== ENCOUNTER 2022-11-15 18:25 | Emergency (ER) | payer BC, SELFPAY ==
[2022-11-15 18:29] VITALS: BP 140/88; PULSE 90; RESP 16; TEMP 37.2; O2SAT 100
--- NOTE | 2022-11-15 20:53 | ED.URI ---
HPI - URI/Sore Throat General Chief Complaint: Upper Respiratory Infection Stated Complaint: sore throat Time Seen by Provider: 11/15/22 20:48 History of Present Illness HPI Narrative: 26-year-old female with history of anxiety reports for sore throat that started today. Patient states her daughter was diagnosed with strep throat 2 days ago, tested positive at urgent care. Patient is reporting of a tickling sensation in her throat, denies pain with swallowing. She states she has had a history of strep in the past and this is how she felt. Denies fever, body aches, chills. She reports an intermittent dry cough the past couple of days. Denies shortness of breath or chest pain, nausea, vomiting, diarrhea, urinary complaints, congestion, ear pain. She is currently on her menstrual cycle. Reports an intermittent headache that has been relieved with Tylenol. Related Data Home Medications Medication Instructions Recorded Confirmed ferrous sulfate 325 mg (65 mg 325 mg PO DAILY 03/30/22 05/19/22 iron) tablet sertraline 50 mg tablet 50 mg PO DAILY 03/30/22 05/19/22 Allergies Allergy/AdvReac Type Severity Reaction Status Date / Time No Known Allergies Allergy Verified 11/15/22 19:25 Review of Systems Review of Systems: CONSTITUTIONAL: Denies fever, chills EYES: Denies visual changes, redness, or discharge. ENT: Denies rhinorrhea, congestion, sore throat, or otalgia. CARDIOVASCULAR: Denies chest pain, palpitations, or edema. RESPIRATORY: Denies cough or dyspnea. GASTROINTESTINAL: Denies abdominal pain, nausea, vomiting, or diarrhea. GENITOURINARY: Denies dysuria or hematuria. SKIN: Denies rash or itching. MUSCULOSKELETAL: Denies back pain, joint pain, or myalgia. NEUROLOGIC: Denies headache, numbness, dizziness, or weakness. PSYCHIATRIC: Denies anxiety or depression. [facility] Past Medical History Medical History Alcohol abuse Anxiety Surgical History Surgical History No pertinent past surgical history Family History Family History Mother Hypertension Fibroids Social History Social History Smoking status: Never smoker Alcohol intake: former Drinks per week: 20 Substance use: never Living arrangements: with family Gender identity (if verbalized by the patient): Female Spiritual care concerns: No Exam Narrative: GENERAL: Well-appearing, well-nourished, and in no acute distress. HEAD: Normocephalic, atraumatic. EYES: PERRLA and EOMI. ENT: Nares clear, no rhinorrhea or epistaxis. Mucous membranes moist. Oropharynx without tonsillar hypertrophy exudate or other lesions. Mild erythema to posterior oropharynx and tonsils. Bilateral TMs pearly valles nonbulging NECK: Supple. No adenopathy or masses. CHEST: Clear to auscultation. No respiratory distress. No wheezes rales or rhonchi HEART: Regular rate and rhythm. No murmur heard. Normal peripheral pulses. ABDOMEN: Soft, nontender, nondistended, normal active bowel sounds. EXTREMITIES: Normal range of motion. No edema. SKIN: Warm, dry, no rash. NEURO: No focal deficits. Alert and oriented x3. PSYCH: Normal mood and affect. Course Course Emergency Course: I offered Tylenol or ibuprofen to the patient for pain control. She declined. Vital Signs Vital signs: Vital Signs Temperature 98.9 F 11/15/22 18:29 Pulse Rate 90 11/15/22 18:29 Respiratory Rate 16 11/15/22 18:29 Blood Pressure 140/88 11/15/22 18:29 Pulse Oximetry 100 11/15/22 18:29 Oxygen Delivery Room Air 11/15/22 18:29 Temperature 98.9 F 11/15/22 18:29 Pulse Rate 82 11/15/22 22:01 Respiratory Rate 19 11/15/22 22:01 Blood Pressure 136/89 11/15/22 22:01 Pulse Oximetry 100 11/15/22 22:01 Oxygen Delivery Room Air 10/24
[2022-11-15 21:48] LABS: Strep Group A RT-PCR NOT DETECTED (Negative)
[2022-11-15 22:01] VITALS: BP 136/89; PULSE 82; RESP 19; O2SAT 100
[2022-11-15 22:02] LABS: Influenza A QL RT-PCR Negative (Negative); Influenza B QL RT-PCR Negative (Negative); SARS-CoV-2 RNA PCR Negative
== END 2022-11-15 22:37 | disposition home or self-care (01) ==
PROVIDERS: Emergency Provider Physician Assistant; PCP Physician Assistant
DX: J02.9 Acute pharyngitis, unspecified (principal); Z20.822 Contact with and (suspected) exposure to COVID-19; F41.9 Anxiety disorder, unspecified
CPT/HCPCS: 87636; 87651; 99283

== ENCOUNTER 2024-04-25 23:37 | Emergency (ER) | payer BC, SELFPAY ==
[2024-04-25 23:45] VITALS: BP 157/91; PULSE 92; TEMP 36.5; O2SAT 100
--- NOTE | 2024-04-26 01:03 | PC.NURSE ---
Patient came to intake desk to state that she is leaving. Patient states I will just go to the urgent care tomorrow. Patient informed of risks of leaving before being seen by a provider and benefits of staying. Patient verbalized understanding and stated she is going home. Patient ambulated out of the ED with a steady gait with belongings in had. Wound was still wrapped in dressing that this RN applied in triage.
== END 2024-04-26 01:13 | disposition left against medical advice (07) ==
LOC: ANHED 04-26 01:08
PROVIDERS: PCP Physician Assistant
DX: S61.412A Laceration without foreign body of left hand, initial encounter (principal); W26.0XXA Contact with knife, initial encounter
CPT/HCPCS: 99199

== ENCOUNTER 2025-03-05 21:41 | Emergency (ER) | payer OTHER, SELFPAY ==
[2025-03-05 21:43] VITALS: BP 112/64; PULSE 86; RESP 20; TEMP 37; O2SAT 100
--- OUTSIDE RECORDS SUMMARY | 2025-03-05 21:43 | XMS_ITS | Encounter Summary ---
Author Organization [facility] Address [address] [place] [address] Care Team Providers Care Hot Box Operator Name Role Phone Elyse Robertson MD Primary Care Provider + [phone] Kaitlin Andrade MD Primary Care Provider [phone] Bev Kruse PA-C Primary Care Provider + [phone] Kaitlin Andrade MD Unavailable [phone] Encounter Details Date Type Department Care Team (Late st Contact Info) Description 09/09/2012 [facility] Outpatient Visit EXTERNAL NON-[facility] DEPT Social History Tobacco Use Types Packs/Day Years Used Date Smoking Tobacco: Never Smokeless Tobacco: Never Alcohol Use Standard Drinks/Week Comments No 0 (1 standard drink = 0.6 oz pur e alcohol) Comments No Sex and Gender Information Value Date Recorded Sex Assigned at Not on file 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
--- OUTSIDE RECORDS SUMMARY | 2025-03-05 21:43 | XMS_ITS | Clinical Summary ---
[facility] Organization [facility] [address] [facility] Address [address] [place] [address] Care Team Providers Care Clinic Nurse Name Role Phone Bev Kruse Primary Care Provider [phone] Allergies No known active allergies Medications 28 mg iron- 800 mcg tablet Take 1 tablet by mouth daily 09/16/2022 Active guaiFENesin-dex tromethorphan ER (MUCINEX DM) 600-30 mg tablet extended release 12 hr Take 1 tablet by mouth 2 (two) times a day as needed (cough, congestion) 20 tablet 10/29/2023 Active acetaminophen (TYLENOL) 500 mg tablet Take 2 tablets (1,000 mg total) by mouth every 6 (six) hours as needed for pain 30 tablet 10/29/2023 Active ibuprofen (ADVIL,MOTRIN) 600 mg tablet Take 1 tablet (600 mg total) by mouth every 6 (six) hours as needed for pain 20 tablet 10/29/2023 Active norethindrone-e .estradioL-iron (LO LOESTRIN FE) 1 mg-10 mcg (24)/10 mcg (2) tablet per tablet Take 1 tablet by mouth daily 28 tablet 3 02/19/2024 Active sertraline (ZOLOFT) 50 mg tablet Take 1 tablet (50 mg total) by mouth daily 90 tablet 1 02/19/2024 Active acyclovir (ZOVIRAX) 400 mg tabletIndicatio ns:HSV (herpes simplex virus) anogenital infection Take 1 tablet (400 mg total) by mouth 2 (two) times a day 180 tablet 08/24/2024 Active Active Problems Problem Noted Date Diagnosed Date Diabetes mellitus screening 12/28/2023 Assessment & Plan (12/28/2023 11:53 PM CDT): Check labs Fatigue 12/28/2023 Assessment & Plan (12/28/2023 11:54 PM CDT): Probably multifactorial. Check labs and followup to re-evaluate Encounter for female control 12/28/2023 Assessment & Plan (02/16/2024 5:34 PM CDT): Continue OCP. On Lo Loestrin and tolerating well. Assessment & Plan (12/28/2023 11:55 PM CDT): This is a significant, separately identifiable problem that was evaluated and managed on the same day as the wellness exam Patient would like to restart OCP. Has been on in the past without any problems. No history of blood clots or bleeding problems. Reviewed starting 1st day of her period. She will need to use backup condoms until she finishes the entire 1st pack. 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 Symptoms include anhedonia, low mood/crying, decreased interest in food, hopelessness, worthlessness, difficulty concentrating, psychomotor retardation, decreased energy, and passive suicidal ideation (thoughts about getting in car and speeding down highway). She no longer has suicidal thoughts but is still feeling hopeless. She states that she is only doing what she has to care for her daughter. She is currently taking sertraline 150 mg (dose recently increased 2 days ago), with no relief in symptoms. EPDS today =19, indicating moderate to severe depressive symptoms. Recommend Zulresso, see below. BMI 24.0-24.9, adult 12/15/2020 Assessment & Plan (02/16/2024 5:34 PM CDT): Weight/BMI is in healthy range. Continue healthy lifestyle to maintain. Assessment & Plan (12/28/2023 11:53 PM CDT): Weight/BMI is in healthy range. Continue healthy lifestyle to maintain. Assessment & Plan (12/15/2020 10:53 AM CDT): Weight/BMI is in healthy range. Continue healthy lifestyle to maintain. Annual physical exam 07/02/2020 Assessment & Plan (12/28/2023 11:53 PM CDT): Encouraged healthy lifestyle, good nutrition and exercise. Encouraged Calcium and Vitamin D and weight bearing exercise for bone health. Reviewed immunizations Reviewed age appropirate screenings. Assessment & Plan (12/16/2020 10:59 AM CDT): Encouraged healthy lifestyle, good nutrition and exercise. Encouraged Calcium and Vitamin D and weight bearing exercise for bone health. Reviewed immunizations Reviewed age appropirate screenings. History of alcohol abuse 01/18/2020 Assessment & Plan (12/16/2020 10:52 AM CDT): No longer abusing. She is using in moderation. Assessment & Plan (03/12/2020 1:17 PM CDT): Alcohol free since last visit. Librium was very helpful. Has good support. Hasn't gone to AA but has information to followup on Assessment & Plan (01/18/2020 1:18 PM CDT): Has been without alcohol for 4-5 days. Has good support at home. Minimal anxiety and cravings today. Feeling better with the Zoloft. Encouraged AA and provided information Encouraged [employer] and provided information. Followup in 2 weeks to reassess. She can call at any time if needs assistance. She doesn't want to consider inpt at this time. Generalized anxiety disorder 03/05/2019 Assessment & Plan (01/30/2023 10:58 PM CDT): Patient currently on Zoloft 150 mg. Discussed additional medication versus change in feels like in general it does help. Discussed at length that her stressors really seem to be stemming from her job and that I suspect until she makes a change she probably is going to continue to have depression and anxiety symptoms. Acknowledged that yes there is other stressors outside of work but it seems as though that is a big portion of her inability to get up in function during the day. She agrees. Will work on trying to make a change. Commit to getting in with a psychiatrist as well as continue with her counselor. Provided names of psychiatrists in the area. Encouraged her to contact our office when she is set an appointment. Assessment & Plan (12/29/2022 10:20 PM CDT): Patient with depression as well as longstanding depression. Was treated with infusion for depression after delivery. States she has been doing okay with the Zoloft 150 but still experiencing a lot of stressors at home as well as work as well as being a new mom. Is meeting with a counselor now on a regular basis. Has been on Zoloft 50 mg through her obstetrician gynecologist. Would like to continue with the same medication regimen needs refills. Has hydroxyzine available at home but has not used it for acute symptoms. Encouraged follow-up in 4-6 weeks or sooner for any problems or concerns Assessment & Plan (12/16/2020 10:59 AM CDT): Managing without edication. Assessment & Plan (03/12/2020 1:16 PM CDT): See depression. Assessment & Plan (01/18/2020 1:18 PM CDT): See depression Assessment & Plan (01/04/2020 2:49 PM CDT): Stable without medication. Continue counseling Assessment & Plan (03/13/2019 4:05 PM CDT): Discussed treatment options at length. She doesn't think the Lexapro is great for her and wants to try something else. Discussed options and will start Wellbutrin. Reviewed risks, benefit, alternatives, side effects and proper use. No history of seizures. Reviewed with patient may return to a small dose of Lexapro as it did initially give a good response. She is in agreement. HSV (herpes simplex virus) anogenital infection 03/05/2019 Assessment & Plan (12/28/2023 11:52 PM CDT): Continue acyclovir Assessment & Plan (01/04/2020 2:48 PM CDT): No outbreaks with the acyclovir. Refills to pharmacy Assessment & Plan (03/13/2019 4:03 PM CDT): No outbreaks. Continue zovirax Moderate episode of recurrent major depressive d isorder 03/05/2019 Assessment & Plan (02/16/2024 5:34 PM CDT): Patient's depression is stable. She is still on Zoloft 50. She has an appointment with the psychiatrist in March. Strongly encouraged her to keep this. She has not completed labs but encouraged her strongly to get these done to make sure there isn't any other metabolic underlying condition contributing. She is in agreement with the plan Assessment & Plan (12/28/2023 11:53 PM CDT): This is a significant, separately identifiable problem that was evaluated and managed on the same day as the wellness exam Patient continues to have depression symptoms. She stopped the Zoloft but wants to restart it. Will re-initiate it 50 mg daily. Still strongly encouraged counseling. Review risks benefits alternatives side effects and proper use Assessment & Plan (01/30/2023 10:59 PM CDT): Patient currently on Zoloft 150 mg. Discussed additional medication versus change in feels like in general it does help. Discussed at length that her stressors really seem to be stemming from her job and that I suspect until she makes a change she probably is going to continue to have depression and anxiety symptoms. Acknowledged that yes there is other stressors outside of work but it seems as though that is a big portion of her inability to get up in function during the day. She agrees. Will work on trying to make a change. Commit to getting in with a psychiatrist as well as continue with her counselor. Provided names of psychiatrists in the area. Encouraged her to contact our office when she is set an appointment. Assessment & Plan (12/29/2022 10:21 PM CDT): Patient with depression as well as longstanding depression. Was treated with infusion for depression after delivery. States she has been doing okay with the Zoloft 150 but still experiencing a lot of stressors at home as well as work as well as being a new mom. Is meeting with a counselor now on a regular basis. Has been on Zoloft 50 mg through her obstetrician gynecologist. Would like to continue with the same medication regimen needs refills. Has hydroxyzine available at home but has not used it for acute symptoms. Encouraged follow-up in 4-6 weeks or sooner for any problems or concerns Assessment & Plan (12/16/2020 10:57 AM CDT): Pt declines medication. Encouraged counseling/marriage counseling. Assessment & Plan (03/12/2020 1:17 PM CDT): Increase Zoloft to 100mg. F.u 4-6 weeks to reasses. Assessment & Plan (01/18/2020 1:18 PM CDT): On Zoloft. Increase to 50mg after one week. New Rx for 50mg sent to pharmacy Assessment & Plan (01/04/2020 2:49 PM CDT): Stable without medication. Continue counseling Assessment & Plan (03/13/2019 4:05 PM CDT): Same plan for anxiety Resolved Problems Problem Noted Date Diagnosed Date Resolved Date BMI 26.0-26.9,adult 01/30/2023 12/28/19 24 Assessment & Plan (01/30/2023 8:37 AM CDT): Weight/BMI is in healthy range. Continue healthy lifestyle to maintain. BMI 28.0-28.9,adult 12/11/2022 01/31/20 23 Assessment & Plan (12/11/2022 3:17 PM CDT): Weight/BMI is in healthy range. Continue healthy lifestyle to maintain. Human papilloma virus (HPV) type 9 vaccine administered 12/16/2020 12/28/2023 Assessment & Plan (12/16/2020 10:58 AM CDT): Patient wants to completed the #3 Gardasil in the series today. Offered for her to contact her insurance for coverage but she states she will want it regardless of coverage. Vaginal discharge 12/16/2020 12/28/2023 Assessment & Plan (12/16/2020 10:53 AM CDT): White chunky discharge. Probably yeast. Will send vaginitis culture Diflucan #1 to pharm Tobacco abuse 12/16/2020 12/28/2023 Overview (12/16/2020): Using mariajuana wrapped in a tobacco leaf. Assessment & Plan (01/30/2023 10:59 PM CDT): Encouraged smoking cessation. Discussed 3 minutes. Reviewed options for assistance with cessation. Reviewed superintendent terminal sequela associated with smoking. Pt declines assistance at this time but may contact the office at anytime for further help as they desire. Assessment & Plan (12/16/2020 10:57 AM CDT): Encouraged smoking cessation. Discussed 3 minutes. Reviewed options for assistance with cessation. Reviewed that there isn't data for medication helping with mariajuana but if she is smoking multiple tobacco leaves a day, it may help with the nicotine addiction. It will also help with stress. No history of seizures. She declines at this time but will consider and call if needs assistance. Cervical cancer screening 07/02/2020 Assessment & Plan (12/16/2020 10:59 AM CDT): Pap with Reflex HPV done today Campbell/Chla from thin[facility] BMI 21.0-21.9, adult 03/08/2019 021 Assessment & Plan (01/18/2020 1:18 PM CDT): Weight/BMI is in healthy range. Continue healthy lifestyle to maintain. Assessment & Plan (01/04/2020 2:49 PM CDT): Weight/BMI is in healthy range. Continue healthy lifestyle to maintain. Assessment & Plan (03/08/2019 9:55 AM CDT): Weight/BMI is in healthy range. Continue healthy lifestyle to maintain. Immunizations Immunization Administration Dates Next Due DTaP 01/05/1999 HPV, Quadrivalent 07/14/2013,05/14/2013 HPV9 12/15/2020 Influenza, Unspecified 10/23/2022(Deferr ed: Patient Refused),11/20/2021(Deferred: Patient Refused),10/23/2021(Deferred: Patient Refused) Varicella 08/16/1996 Medical History Medical History Date Comments Depression Family History Medical History Relation Name Comments Anxiety disorder Father Asthma Mother Hypertension Mother Migraines Mother Relation Name Status Comments Father Mother Social History Tobacco Use Types Packs/Day Years Used Date Smoking Tobacco: Never Smokeless Tobacco: Never Tobacco Cessation:Counseling Given: Not Answered Alcohol Use Standard Drinks/Week Comments Yes 0 (1 standard drink = 0.6 oz pur e alcohol) Social Connection and Isolat ion Panel [NHANES] Answer Date Recorded In a typical week, how many times do you talk on the phone with family, friends, or neighbors? More than three times a week 10/10/2022 How often do you get togethe r with friends or relatives? Three times a week 10/10/2022 How often do you attend chur or hinduism services? Never 10/10/2022 Do you belong to any clubs o r organizations such as faith groups, unions, fraternal or athletic groups, or school groups? No 10/10/2022 How often do you attend meet ings of the clubs or organizations you belong to? Never 10/10/2022 Are you , , di vorced, , never , or living with a partner? 10/10/2022 AUDIT-C Answer Date Recorded Q1: How often do you have a drink containing alc ohol? 2-4 times a month 01/20/2024 Q2: How many drinks containi ng alcohol do you have on a typical day when you are drinking? 1 or 2 01/20/2024 Q3: How often do you have si x or more drinks on one occasion? Never 01/20/2024 Overall Financial Resource Strain (CARDIA) Answe r Date Recorded How hard is it for you to pa y for the very basics like food, housing, medical care, and heating? Not very hard 10/10/2022 PHQ-2 Answer Date Recorded PHQ-2 Total Score 0 01/20/2024 Hunger Vital Sign Answer Date Recorded Within the past 12 months, y ou worried that your food would run out before you got the money to buy more. Never true 10/10/19 23 Within the past 12 months, t he food you bought just didn't last and you didn't have money to get more. Never true 10/10/2022 PRAPARE - Transportation Answer Date Re corded In the past 12 months, has l ack of transportation kept you from medical appointments or from getting medications? No 09/22 In the past 12 months, has l ack of transportation kept you from meetings, work, or from getting things needed for daily living? No 10/10/2022 Housing Stability Vital Sign Answer Eagle e Recorded In the last 12 months, was t here a time when you were not able to pay the mortgage or rent on time? No 10/10/2022 In the last 12 months, how many places have you lived? 1 10/10/2022 In the last 12 months, was t here a time when you did not have a steady place to sleep or slept in a detention (including now)? No 10/10/2022 [place] Depression Scale Answer Date Recorded [place] Depression Scale Total 5 10/23/2022 The thought of harming myself has occurred to me . Never 10/23/2022 PHQ-9 Answer Date Recorded PHQ-9 Total Score 9 12/23/2023 Personal Safety Answer Date Recorded Have you ever been in or are you currently in a harmful physical or emotional relationship or is someone making you feel afraid or unsafe? 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 Not on file Not on file Obstetrics History Para Term AB IAB SAB Ectopic Multiple Livin g Live Births 1 Date Outcome GA Total Labor Labor/2nd/3rd Weight Sex Type Anes PTL Dian A1 A5 Name Clin Last Filed Vital Signs Vital Sign Reading Time Taken Comments Blood Pressure 122/80 01/20/2024 9:48 AM CDT Pulse 70 01/20/2024 9:48 AM CDT Temperature 37 C (98.6 F) 01/20/2024 9:48 AM CDT Respiratory Rate 18 10/29/2023 12:2 0 PM 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 Oxygen Saturation 98% 01/20/2024 9:48 AM CDT Inhaled Oxygen Concentration - - Weight 64.3 kg (141 lb 12.8 oz) 01/20/2024 9:48 AM CDT Height 162.6 cm (5' 4) 01/20/2024 9:48 AM CDT Body Mass Index 24.34 01/20/2024 9:48 AM CDT Plan of Treatment Health Maintenance Due Date Last Done Comments Varicella Vaccines (2 of 2 - 2-dose childhood series) 1997 08/16/1996 DTaP/Tdap/Td Vaccine (2 - Tdap) 2004 01/05/1999 Hepatitis B Screening 01/01/2012 Cervical Cancer Screening 12/15/2021 12/15/2020 Regular Well Visit/Exam 18-64 12/22/2024 12/23/2023, 12/15/2020, 06/24/2018 Depression Screening 01/19/2025 01/20/2024, 12/23/2023, 12/23/2023, Additional history exists Influenza Vaccine (Season Ended) 2025 Hepatitis C Screening Completed 06/24/2018 HPV Vaccines Completed 12/15/2020, 06/23, 05/14/2013 Pneumococcal vaccine <65 Aged Out No longer eligible based on patient's age to complete this topic Procedures Procedure Name Priority Date/Time Associated Diagnosis Comments THINPREP IMAGING PAP REFLEX HPV MRNA E6/E7 Routine 12/15/2020 12:23 PM CDT HEPATITIS PANEL, ACUTE Routine 06/24/2018 2:23 PM CDT from Last 3 Months or Most Recently Relevant to Health Maintenance Results * ThinPrep Imaging Pap Reflex HPV mRNA E6/E7 (12/15/2020 12:23 PM CDT) CLINICAL INFORMATION: Elodia Hatch Comment:SCREENING LMP Elodia Hatch Comment:12/15/2020 Previous Pap Elodia Hatch Comment:INFORMATION NOT PROV IDED Prev. Bx Elodia Hatch Comment:INFORMATION NOT PROV IDED SOURCE: Elodia Hatch Comment:Vagina Pap, specimen adequacy Elodia Hatch Comment: Satisfactory for evaluation. Endocervical/transformation zone component present. HPV interp Elodia Hatch Comment:Negative for intraep ithelial lesion or malignancy. COMMENTS Elodia Hatch Comment: This Pap test has been evaluated with computer assisted technology. [employer] Farmworker Rip Coker Comment: LMT, CT(ASCP) CT screening location: [place] [address] [address] [place] [id number] Comment Elodia Hatch Comment: EXPLANATORY NOTE: The Pap is a screening test for cervical cancer. It is not a diagnostic test and is subject to false negative and false positive results. It is most reliable when a satisfactory sample, regularly obtained, is submitted with relevant clinical findings and history, and when the Pap result is evaluated along with historic and current clinical information. 12/15/2020 12:2 3 PM CDT 12/18/2020 5:39 AM CDT Bev CELESTE LAB PATHOLOGY ORDERABLES F inal Result [facility] [place] [address] [address] [place] [id number] * Hepatitis panel, acute (06/24/2018 2:23 PM CDT) Hep A IgM NON-REACTI VE NON-REACTI VE [facility] HISTORICAL RESULTS HepBsAg NON-REACTI VE NON-REACTI VE [facility] HISTORICAL RESULTS Hep B core IgM NON-REACTI VE NON-REACTI VE [facility] HISTORICAL RESULTS Hep C Ab NON-REACTI VE NON-REACTI VE [facility] HISTORICAL RESULTS SIGNAL TO CUT-OFF 0.01 <1.00 [facility] HISTORICAL RESULTS 06/24/2018 2:23 PM CDT 06/25/2018 3:55 PM CDT Narrative [facility] HISTORICAL RESULTS - 06/25/2018 3:37 PM CDT 0; 0; 0; 0; 0; 0 PERFORMING LAB: [place], [facility] [address] [place] [address] Jonatan Alexander D.O., MPH Historical Provider LAB MICROBIOLOGY - GENERA L ORDERABLES Final Result [facility] HISTORICAL RESULTS from Last 3 Months or Most Recently Relevant to Health Maintenance Insurance [facility] BLUE [place] [employer] [place] Advance Directives For more information, please contact: [phone] * Full Code (Latest Code Status on File) Date Activated Date Inactivated Comments 10/08/2022 11:41 AM 10/11/2022 6:18 PM Care Teams Clinic Nurse Relationship Specialty Start Date End Date Bev Kruse PA [address] [place] [address] PCP - General Internal Medicine 01/28/19
--- OUTSIDE RECORDS SUMMARY | 2025-03-05 21:43 | XMS_ITS | Referral Summary ---
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 Would like to continue with the same [...] Reviewed options for assistance with cessation. 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 Pt declines assistance [...] Refused),11/20/2021(Deferred: Patient Refused),10/23/2021(Deferred: Patient Refused) Varicella 08/16/1996 Social History Tobacco Use Types Packs/Day Years [...] 10/10/2022 How often do you attend chur ch or voodoo services? Never 10/10/2022 Do you belong to any clubs o r organizations such as hinduism groups, unions, fraternal or athletic groups, or [...] place to sleep or slept in a fdc (including now)? 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 on file Not on file Last Filed Vital Signs Vital Sign Reading Time Taken Comments Blood Pressure 122/80 01/20/2024 9:48 AM CDT Pulse 70 01/20/2024 9:48 AM CDT Temperature 37 C (98.6 F) 01/20/2024 9:48 AM CDT Respiratory Rate 18 10/29/2023 12:2 0 PM ICER HAND Oxygen Saturation 98% 01/20/2024 9:48 AM CDT Inhaled Oxygen Concentration - - Weight 64.3 kg (141 lb 12.8 oz) 01/20/2024 9:48 AM CDT Height 162.6 cm (5' 4) 01/20/2024 9:48 AM CDT Body Mass Index 24.34 01/20/2024 9:48 AM CDT Plan of Treatment Not on file Procedures Procedure Name Priority Date/Time Associated Diagnosis [...] has been evaluated with computer assisted technology. Coating Supervisor Rip EdithKeegan Hatch Comment: LMT, CT(ASCP) CT screening location: [place] [address] Administration [place] [address] Comment [facility] proVITALKeegan Hatch Comment: EXPLANATORY NOTE: The Pap is [...] CELESTE LAB PATHOLOGY ORDERABLES F inal Result Performing Organization Address City/[facility]/ZIP Co de Phone Number [facility] [place] [address] Administration [place] [phone] * Hepatitis panel, acute (06/24/2018 2:23 PM CDT) Hep A IgM NON-REACTI VE [facility]I [facility] RES[facility] HepBsAg NON-REACTI VE NON-[facility]ACTI VE [facility] Hep B core IgM NON-REACTI VE NON-[facility]ACTI VE [facility] RESULTS Hep C Ab NON-REACTI VE NON-REACTI VE [facility] - [facility] HISTORICAL RESULTS SIGNAL TO CUT-OFF 0.01 <1.00 [facility] RESULTS 06/24/2018 2:23 PM CDT 06/25/2018 3:55 PM CDT Narrative [facility] HISTORICAL RESULTS - 06/25/2018 3:37 PM CDT 0; 0; 0; 0; 0; 0 PERFORMING LAB: [facility] [place] [address] [place] [address] Jonatan Alexander D.O., MPH Historical Provider LAB MICROBIOLOGY - GENERA L ORDERABLES Final Result Performing Organization Address City/[facility]/ZIP Co de Phone Number [facility] HISTORICAL RESULTS from Last 3 Months or Most Recently Relevant to Health Maintenance [place] [facility] Advance Directives For more information, please contact: [phone] * Full Code (Latest Code Status on File) Date Activated Date Inactivated Comments 10/08/2022 11:41 AM 10/11/2022 6:18 PM Care Teams Title One Reading Teacher Relationship Specialty Start Date End Date Bev Kruse PA [address] [place] [address] PCP - General Internal Medicine 01/28/19
--- OUTSIDE RECORDS SUMMARY | 2025-03-05 21:43 | XMS_ITS | Clinical Summary ---
Author Organization [facility] Address [address] [place] [address] Care Team Providers Care Edge Drummer Name Role Phone Bev Kruse PA-C Primary Care Provider [phone] Kaitlin Andrade MD Unavailable [phone] Source Comments [facility],non-owned Affiliates and Associated Physician Practices is amultiple site organization consisting of ambulatory clinics and hospital sitesin [place], [place], [place] and [place]. This disclosure is being madepursuant to the Care Everywhere program and may not contain all information available regarding this patient. Last updated 18.[facility] Allergies No known active allergies Medications * This document contains information received from the source organization and may not represent a complete record from that organization. * Be aware that medications may not be up to date on this document. Alwaysverify current medications with the patient. vitamin D, ergocalciferol, (DRISDOL) 59477 UNITS capsule Take 1 Cap by mouth every 7 days. 4 Cap 3 3 Active Additional Information Patient not taking.Reported on 07/17/2023 norgestimate-et hinyl estradiol (SPRINTEC 28) 0.25-35 MG-MCG tablet Take 1 Tab by mouth once daily 1 Packet 11 5 Active Additional Information Patient not taking.Reported on 07/17/2023 acyclovir (Zovirax) 400 MG tablet TAKE 1 TABLET BY MOUTH TWICE DAILY FOR 30 DAYS THEN DECREASE TO 1 TABLET EVERY DAY 3 Active escitalopram (Lexapro) 10 MG tablet Take 1 (one) tablet by mouth once daily 30 tablet 3 Active Active Problems Problem Noted Date Diagnosed Date Vitamin D deficiency 07/20/2013 Otitis media 09/01/2012 Immunizations Immunization Administration Dates Next Due DTaP VACCINE IM (6wk-6yrs) 01/05/1999 Human Papilloma Virus Quadrivalent Vaccine 07/14,05/14/2013 VARICELLA 08/16/1996 Family History Medical History Relation Name Comments Hypertension Mother Relation Name Status Comments Father Alive Maternal Grandfather Maternal Grandmother Alive Mother Alive Paternal Grandfather Alive Paternal Grandmother Alive Social History Tobacco Use Types Packs/Day Years Used Date Smoking Tobacco: Never Passive Smoke Exposure: Never Smokeless Tobacco: Never Tobacco Cessation:Counseling Given: Not Answered Alcohol Use Standard Drinks/Week Comments Not Currently 0 (1 standard drink = 0.6 oz pur e alcohol) daily AUDIT-C Answer Date Recorded Q1: How often do you have a drink containing alcohol? Never 07/17/2023 Q2: How many drinks containi ng alcohol do you have on a typical day when you are drinking? Patient does not drink Q3: How often do you have si x or more drinks on one occasion? Never 07/17/2023 Comments No Sex and Gender Information Value Date Recorded Sex Assigned at Not on file Legal Sex Female 9:08 AM VICE PRESIDENT RISK MANAGEMENT Gender Identity Not on file Sexual Orientation Not on file Last Filed Vital Signs Vital Sign Reading Time Taken Comments Blood Pressure 117/80 07/17/2023 2:05 PM CDT Pulse 66 07/17/2023 2:05 PM CDT Temperature 36.6 C (97.9 F) 07/17/2023 2:05 PM CDT Respiratory Rate 20 02/25/2023 11:07 AM CDT Oxygen Saturation 100% 09/04/2019 3:05 PM VICE PRESIDENT RISK MANAGEMENT Inhaled Oxygen Concentration - - Weight 62.8 kg (138 lb 6.4 oz) 07/17/2023 2:03 P M CDT Height 162.6 cm (5' 4) 07/17/2023 2:03 PM CDT Body Mass Index 23.76 07/17/2023 2:03 PM CDT Plan of Treatment Health Maintenance Due Date Last Done Comments DTAP/TDAP/TD VACCINES (2 - Tdap) 2012 01/05/1999 HEPATITIS B VACCINE (1 of 3 - 19+ 3-dose series) 2012 HPV VACCINE (3 - 3-dose series) 11/14/2013 07/14/2013, 05/14/2013 PAP SMEAR 07/14/2016 07/14/2013 PAP with HPV 01/01/2024 07/14/2013 COVID-19 VACCINE (1 - 2023-2 5 season) 2024 DEPRESSION SCREENING 09/22/2024 INFLUENZA VACCINE (Season Ended) 2025 ZOSTER VACCINE (1 of 2) 01/01/2044 HEPATITIS C SCREENING Completed 07/14/2013 HIV SCREENING Completed 07/14/2013 HIB VACCINE Aged Out No longer eligi ble based on patient's age to complete this topic MENINGOCOCCAL (Group B) VACCINE SHARED DECISION-MAKING Aged Out No longer eligible based on patient's age to complete this topic MENINGOCOCCAL GROUPS A/C/Y/W VACCINE Aged Out No longer eligible b ased on patient's age to complete this topic PNEUMOCOCCAL VACCINE Aged Out No long er eligible based on patient's age to complete this topic Procedures Procedure Name Priority Date/Time Associated Diagnosis Comments PAP IG LB CT+GC+TV+ HPV HR DNA Routine 07/14/2013 2:19 PM CDT Well woman exam with routine gynecological exam HEPATITIS B + C PANEL Routine 07/14/2013 2:05 PM CDT Well woman exam with routine gynecological exam HIV-1 HIV-2 ANTIBODY Routine 07/14/2013 2:05 PM CDT Well woman exam with routine gynecological exam from Last 3 Months or Most Recently Relevant to Health Maintenance Results * PAP SMEAR IG CT+GC+TV HPV HR (PO REF LAB) (07/14/2013 2:19 PM CDT) Diagnosis [facility] INSURANCE BILL Comment: NEGATIVE FOR INTRAEPITHELIAL LESION AND MALIGNANCY. THIS SPECIMEN WAS RESCREENED PART OF OUR FURNACE FILLER PROGRAM. Specimen Adequacy [facility] INSURANCE BILL Comment: Satisfactory for evaluation. Endocervical and/or squamous metaplastic cells (endocervical component) are present. Clinician Provided ICD9 [facility] INSURANCE BILL Comment: V72.31 ; Routine gynecological examination V25.01 ; General counseling for prescription of oral contraceptives V05.9 ; Need for prophylactic vaccination and inoculation against unspecified single disease Performed by [facility] INSURANCE BILL Comment:Ileana Mcknight, Cytotec hnologist (ASCP) QC Reviewed by [facility] INSURANCE BILL Comment:Yumi Delgado Chain Maker Machine (ASCP) Comment . [facility] INSURANCE BILL Note [facility] INSURANCE BILL Comment: The Pap smear is a screening test designed to aid in the detection of premalignant and malignant conditions of the uterine cervix. It is not a diagnostic procedure and should not be used as the sole means of detecting cervical cancer. Both false-positive and false-negative reports do occur. . IGLBP CPT Code Automation [facility] INSURANCE BILL Comment: This liquid based ThinPrep(R) pap test was screened with the use of an image guided system. Human papillomavirus High Risk Negative Negative [facility] INSURANCE BILL Comment: This high-risk HPV test detects thirteen high-risk types (16/18/31/33/35/39/45/51/52/56/58/59/68) without differentiation. . Chlamydia trachomatis GIOVANNY Negative Negative [facility] INSURANCE BILL GC GIOVANNY Negative Negative [facility] INSURANCE BILL Trichomonas vaginalis by GIOVANNY Negative Negative [facility] INSURANCE BILL MICROSCOPIC CYTOLOGIC EXAMINATION OF SMEAR OF SPECIMEN FROM FEMALE GENITAL TRACT PREPARED USING PAPANICOLAOU TECHNIQUE / Unknown 07/14/2013 2:19 PM CDT 07/15/2013 2:30 AM CDT Narrative [facility] INSURANCE BILL - 07/19/2013 8:07 PM CDT No. of containers..01 CYTYC Thin Prep Vial Resulting Agency Comment [address] [phone] [place] Elyse Robertson MD LAB - PATHOLOGY/CYTOLOGY O RDERABLES Final Result [facility] INSURANCE BILL [address] [place] [address] * HEPATITIS B + C PANEL (PO REF LAB) (07/14/2013 2:05 PM CDT) Hepatitis B Virus Surface Antigen Negative Negative [facility] ACCOUNT BILL Hepatitis Be Antigen Negative Negative [facility] ACCOUNT BILL Hepatitis B Core Virus Antibody IgM Negative Negative [facility] ACCOUNT BILL Hepatitis B Core Virus Antibody Total Negative Negative [facility] ACCOUNT BILL Hepatitis Be Antibody Negative Negative [facility] ACCOUNT BILL Hepatitis B Virus Surface Antibody Reactive [facility] ACCOUNT BILL Comment: Non Reactive: Inconsistent with immunity, less than 10 mIU/mL Reactive: Consistent with immunity, greater than 9.9 mIU/mL Hepatitis C Antibody <0.1 0.0 - 0.9 s/co ratio [facility] ACCOUNT BILL BLOOD SPECIMEN / Unknown 07/14/2013 2:05 PM CDT 07/14/2013 5:31 PM CDT Narrative Resulting Agency Comment [facility] [place] [address] [facility] [id number] Elyse Robertson MD LAB - SEROLOGY ORDERABLES Final Result Performing Organization Address City/[facility]/ZIP Co de Phone Number [facility] ACCOUNT BILL [address] [place] [address] * HIV-1 HIV-2 ANTIBODY (07/14/2013 2:05 PM CDT) HIV-1 Antibody O.D. Ratio <1.00 <1.00 [facility] ACCOUNT BILL Comment:Index Value: Specime n reactivity relative to the negative cutoff. HIV-1/HIV-2 Non Reactive Non Reactive [facility] ACCOUNT BILL Blood specimen (specimen) BLOOD SPECIMEN / Unknown 07/14/2013 2:05 PM CDT 07/14/2013 5:31 PM CDT Narrative Resulting Agency Comment [facility] [place] [address] [facility] [id number] Elyse Robertson MD LAB - CHEMISTRY ORDERABLES Final Result [facility] ACCOUNT BILL [address] [place] [address] from Last 3 Months or Most Recently Relevant to [place] [address] ANTHEM ANTHEM ANTHEM ANTHEM Care Teams Edge Drummer Relationship Specialty Start Date End Date Bev Kruse, PASitaC [address] [place] [address] PCP - General 05/24/22 Kaitlin Andrade MD [address] [place] [address] Family Medicine 05/24/22
--- OUTSIDE RECORDS SUMMARY | 2025-03-05 22:17 | XMS_ITS | Clinical Summary ---
Author Organization [facility] [employer] Address [address] [facility] [place] [address] Care Team Providers Care Collateral Specialist Name Role Phone Bev Kruse PA-C Primary Care Provider [phone] Kaitlin Andrade MD Unavailable [phone] Source Comments [facility] [employer],non-owned Affiliates and Associated Physician Practices is amultiple site organization consisting of ambulatory clinics and hospital sitesin [place], [place], [place] and [place]. This disclosure is being madepursuant to the Care Everywhere program and may not contain all information available regarding this patient. Last updated 18.[facility] [employer] [facility] Allergies No known active allergies Medications * This document contains information received from the source organization and may not represent a complete record from that organization. * Be aware that medications may not be up to date on this document. Alwaysverify current medications with the patient. 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 Specimen Adequacy [facility] INSURANCE BILL [...] by [facility] INSURANCE BILL Comment:Yumi Delgado [employer] Caretaker (ASCP) Comment . [facility] INSURANCE BILL Note [...] CYTYC Thin Prep Vial Resulting Agency Comment [address] [phone] [place] Elyse Robertson MD LAB - PATHOLOGY/CYTOLOGY O RDERABLES Final Result [facility] INSURANCE BILL [address] [place] [address] * HEPATITIS B + C PANEL (PO [...] PM CDT Narrative Resulting Agency Comment [facility] [place] [address] [facility] [id number] Elyse Robertson MD LAB - SEROLOGY ORDERABLES Final Result Performing Organization Address City/[facility]/ZIP Co de Phone Number [facility] ACCOUNT BILL [address] [place] [address] * HIV-1 HIV-2 ANTIBODY (07/14/2013 2:05 PM CDT) HIV-1 Antibody O.D. Ratio <1.00 <1.00 [facility] ACCOUNT BILL Comment:Index Value: Specime n reactivity relative to the negative cutoff. HIV-1/HIV-2 Non Reactive Non Reactive [facility] ACCOUNT BILL Blood specimen (specimen) BLOOD SPECIMEN / Unknown 07/14/2013 2:05 PM CDT 07/14/2013 5:31 PM CDT Narrative Resulting Agency Comment [facility] [place] [address] [facility] [id number] Elyse Robertson MD LAB - CHEMISTRY ORDERABLES Final Result [facility] ACCOUNT BILL [address] [place] [address] from Last 3 Months or Most Recently Relevant to [place] [address] ANTHEM ANTHEM ANTHEM ANTHEM Care Teams Collateral Specialist Relationship Specialty Start Date End Date Bev Kruse, PASitaC [address] [place] [address] PCP - General 05/24/22 Kaitlin Andrade MD [address] [place] [address] Family Medicine 05/24/22
--- OUTSIDE RECORDS SUMMARY | 2025-03-05 22:17 | XMS_ITS | Encounter Summary ---
Author Organization [facility] Address [address] [place] [address] Care Team Providers Care Roll Panner Name Role Phone Elyse Robertson MD Primary Care Provider + [phone] Kaitlin Andrade MD Primary Care Provider [phone] Bev Kruse PA-C Primary Care Provider + [phone] Kaitlin Andrade MD Unavailable [phone] Encounter Details Date Type Department Care Team [...] on file Legal Sex Female 9:08 AM COUNTER CHECKER Gender Identity Not on file Sexual Orientation Not on file documented as of this encounter Plan of Treatment Not on file documented as of this encounter Visit Diagnoses Not on filedocumented in this encounter Care Teams Roll Panner Relationship Specialty Start Date End Date Elyse Robertson MD PCP - General Family Medicine 08/27/12 11/11/17 Kaitlin Andrade MD PCP - General Family Medicine 11/12/17 05/23/22 Bev Kruse PA-C [address] [place] [address] PCP - General 05/24/22 Kaitlin Andrade MD Family Medicine 05/24/22 documented as of this encounter
--- OUTSIDE RECORDS SUMMARY | 2025-03-05 22:17 | XMS_ITS | Referral Summary ---
Author Organization [facility] [place] [place] [address] [facility] Address [address] [place] [address] Care Team Providers Care Roller Gold Leaf Name Role Phone Bev Kruse Primary Care Provider [phone] Allergies No known active allergies Medications 28 [...] 09/02/2022 Assessment & Plan (09/02/2022 5:58 PM BENEFITS ASSISTANT): Soon after the of her daughter (about [...] been on Zoloft 50 mg through her shipboard intelligence analyst. Would like to continue with the same [...] been on Zoloft 50 mg through her shipboard intelligence analyst. Would like to continue with the same [...] Reviewed options for assistance with cessation. Reviewed continuous churn buttermaker sequela associated with smoking. Pt declines assistance [...] often do you attend chur ch or lutheran services? Never 10/10/2022 Do you belong to any clubs o r organizations such as yazidi groups, unions, fraternal or athletic groups, or [...] in a detention (including now)? No 10/10/2022 [place] Depression Scale Answer Date Recorded [place] Depression Scale Total 5 10/23/2022 The thought [...] on file Legal Sex Female 4:32 PM BENEFITS ASSISTANT Gender Identity Not on file Sexual Orientation [...] Respiratory Rate 18 10/29/2023 12:2 0 PM BENEFITS ASSISTANT Oxygen Saturation 98% 01/20/2024 9:48 AM CDT [...] has been evaluated with computer assisted technology. Splitting Machine Operator Helper Rip EdithKeegan Hatch Comment: LMT, CT(ASCP) CT screening location: [place] [address] [place] [address] Comment [facility] ABBKeegan Hatch Comment: EXPLANATORY NOTE: The Pap is [...] City/[facility]/ZIP Co de Phone Number [facility] [place] [address] [address] [place] [address] * Hepatitis panel, acute (06/24/2018 2:23 PM CDT) Hep A IgM NON-REACTI VE [facility]ACTI VE [facility] RES[facility] HepBsAg NON-REACTI VE NON-REACTI VE [facility] RESULTS Hep B core IgM NON-REACTI VE NON-REACTI VE [facility] H[facility] RESULTS Hep C Ab NON-REACTI VE NON-REACTI VE [facility] - [facility] HISTORICAL RESULTS SIGNAL TO CUT-OFF 0.01 <1.00 [facility] HISTORICAL RESULTS 06/24/2018 2:23 PM CDT 06/25/2018 3:55 PM CDT Narrative [facility] HISTORICAL RESULTS - 06/25/2018 3:37 PM CDT 0; 0; 0; 0; 0; 0 PERFORMING LAB: [facility] [address] [address] Jonatan Alexander D.O., MPH Historical Provider LAB MICROBIOLOGY - GENERA L ORDERABLES Final Result Performing Organization Address City/[facility]/ZIP Co de Phone Number [facility] HISTORICAL RESULTS from Last 3 Months or Most Recently Relevant to Health Maintenance [place] [facility] Advance Directives For more information, please contact: [phone] * Full Code (Latest Code Status on File) Date Activated Date Inactivated Comments 10/08/2022 11:41 AM 10/11/2022 6:18 PM Care Teams Roller Gold Leaf Relationship Specialty Start Date End Date Bev Kruse PA [address] [place] [address] PCP - General Internal Medicine 01/28/19
--- OUTSIDE RECORDS SUMMARY | 2025-03-05 22:17 | XMS_ITS | Clinical Summary ---
Author Organization [facility] [address] [facility] Address [address] [place] [address] Care Team Providers Care Art Preparator Name Role Phone Bev Kruse Primary Care Provider [phone]- [phone] Allergies No known active allergies Medications 28 [...] 09/02/2022 Assessment & Plan (09/02/2022 5:58 PM AGRICULTURAL EQUIPMENT MECHANIC): Soon after the of her daughter (about [...] been on Zoloft 50 mg through her orchid transplanter. Would like to continue with the same [...] been on Zoloft 50 mg through her orchid transplanter. Would like to continue with the same [...] Reviewed options for assistance with cessation. Reviewed terminal worker sequela associated with smoking. Pt declines assistance [...] How often do you attend chur or buddhist services? Never 10/10/2022 Do you belong to any clubs o r organizations such as mu-ism groups, unions, fraternal or athletic groups, or [...] place to sleep or slept in a chcf (including now)? No 10/10/2022 [place] Depression Scale Answer Date Recorded [place] Depression Scale Total 5 10/23/2022 The thought [...] on file Legal Sex Female 4:32 PM AGRICULTURAL EQUIPMENT MECHANIC Gender Identity Not on file Sexual Orientation [...] Respiratory Rate 18 10/29/2023 12:2 0 PM AGRICULTURAL EQUIPMENT MECHANIC Oxygen Saturation 98% 01/20/2024 9:48 AM CDT [...] has been evaluated with computer assisted technology. Steel Floor Pan Placing Supervisor Rip Coker Comment: LMT, CT(ASCP) CT screening location: [place] [address] Administration [place] [id number] Comment Elodia Hatch Comment: EXPLANATORY NOTE: The [...] [facility] PATHOLOGY ORDERABLES F inal Result [facility] [email or web address] [address] [place] [id number] * Hepatitis panel, acute (06/24/2018 2:23 PM CDT) Hep A IgM NON-REACTI VE NON-REACTI VE [facility] HISTORICAL RESULTS HepBsAg NON-REACTI VE NON-REACTI VE [facility] HISTORICAL RESULTS Hep B core IgM NON-REACTI VE NON-REACTI VE [facility] HISTORICAL RESULTS Hep C Ab NON-REACTI VE NON-REACTI VE [facility] HISTORICAL RESULTS SIGNAL TO CUT-OFF 0.01 <1.00 [facility] HISTORICAL RESULTS 06/24/2018 2:23 PM CDT 06/25/2018 3:55 PM CDT Narrative [facility] HISTORICAL RESULTS - 06/25/2018 3:37 PM CDT 0; 0; 0; 0; 0; 0 PERFORMING LAB: [place], [facility] [address] [place] [address] Jonatan Alexander D.O., MPH Historical Provider LAB MICROBIOLOGY - GENERA L ORDERABLES Final Result [facility] HISTORICAL RESULTS from Last 3 Months or Most Recently Relevant to Health Maintenance Insurance [facility] BLUE [facility] Advance Directives For more information, please contact: [phone] * Full Code (Latest Code Status on File) Date Activated Date Inactivated Comments 10/08/2022 11:41 AM 10/11/2022 6:18 PM Care Teams Art Preparator Relationship Specialty Start Date End Date Bev Kruse PA [address] [place] [address] PCP - General Internal Medicine 01/28/19
--- NOTE | 2025-03-05 22:24 | ED_ITS ---
HPI - Animal Bite General Chief Complaint: Animal Bite Stated Complaint: dog bite Time Seen by Provider: 03/05/25 21:58 History of Present Illness HPI narrative: Patient got a new puppy 14-week-old from a reputable pet shop, the puppy already had his 1st round of vaccines but has not completed rabies series yet. Patient was playing with a puppy with a stick and the dog missed the stick and accidentally nipped her right arm; other than that, doc has been behaving normally, has not seemed aggressive or has not been behaving strangely. Tetanus up-to-date Related Data Home Medications ?Medication ?Instructions ?Recorded ?Confirmed ?Last Taken ?Type ferrous sulfate 325 mg (65 mg 325 mg PO DAILY 03/30/22 05/19/22 05/19/22 History iron) tablet sertraline 50 mg tablet 50 mg PO DAILY 03/30/22 05/19/22 05/19/22 History Allergies Allergy/AdvReac Type Severity Reaction Status Date / Time No Known Allergies Allergy Verified 03/05/25 21:49 Review of Systems Review of Systems: All systems reviewed & are unremarkable except as noted in HPI and below PMFSH Past Medical History Medical History Alcohol abuse Anxiety Surgical History Surgical History No pertinent past surgical history Family History Family History Mother Hypertension Fibroids Social History Social History Smoking status: Never smoker Alcohol intake: former Drinks per week: 20 Substance use: never Living arrangements: with family Gender identity (if verbalized by the patient): Female Spiritual care concerns: No Exam Narrative: EXAMINATION OF ORGAN SYSTEMS/BODY AREAS: Constitutional: Vital signs per nursing GENERAL:[No acute distress, non-toxic appearing.] HEAD: Normal with no signs of head trauma. EYES: EOMI, conjunctiva normal ENT: Hearing grossly intact LUNGS: Nonlabored breathing. HEART: [Regular rate and rhythm] ABD: [Soft], [nontender to palpation] EXT: Normal range of motion SKIN: Tiny superficial bite shukla to right arm NEURO: [Alert and oriented x 3. No gross focal sensory or strength deficits.] PSYCH: Normal affect Course Vital Signs Vital signs: Vital Signs Temperature 98.6 F 03/05/25 21:43 Pulse Rate 86 03/05/25 21:43 Respiratory Rate 20 03/05/25 21:43 Blood Pressure 112/64 03/05/25 21:43 Pulse Oximetry 100 03/05/25 21:43 Oxygen Delivery Room Air 03/05/25 21:43 Temperature 98.6 F 03/05/25 21:43 Pulse Rate 86 03/05/25 21:43 Respiratory Rate 20 03/05/25 21:43 Blood Pressure 112/64 03/05/25 21:43 Pulse Oximetry 100 03/05/25 21:43 Oxygen Delivery Room Air 03/05/25 21:43 MDM - Animal Bite MDM Narrative Medical decision making narrative: Patient presents after dog bite from her puppy, puppy has been behaving normally and had accidentally nipped her arm when he was trying to grab the stick. Her tetanus is up-to-date, the puppy has not had any exposures to other animals, and she will be able to keep a close eye on the puppy for the next 10 days, so I did not feel rabies series was indicated. Her cut was washed and cleaned under the sink with soap and water here. Prescription for Augmentin with 1 dose here provided. I have let her know to watch out for any signs unusual behavior in her dog for the next 10 days and return to the ER for any further issues. Patient agreeable to this plan. Discharge Plan Discharge Clinical Impression: Dog bite Patient Disposition: Home Condition: Stable Instructions: Antibiotic Form, Animal Bite (ED) Additional Instructions: Please follow up with your doctor; you can always return for any further issues. Keep the area clean. Patient Language: Bengali Prescriptions: New amoxicillin-pot clavulanate 875-125 mg tablet 1 tablet PO Q12H Qty: 10 0RF No Action ferrous sulfate 325 mg (65 mg iron) Tablet 325 mg PO DAILY sertraline 50 mg Tablet 50 mg PO DAILY polysaccharide iron complex 150 mg iron Capsule 150 mg PO BIDWM 30 Days Qty: 60 0RF docusate sodium 100 mg Capsule 100 mg PO BID 30 Days Qty: 60 0RF ibuprofen 600 mg Tablet 600 mg PO Q6H PRN (Reason: Cramping) 30 Days Qty: 45 0RF norethindrone (contraceptive) [Ortho Micronor] 0.35 mg tablet 0.35 mg PO DAILY 90 Days Qty: 84 3RF ergocalciferol (vitamin D2) [Vitamin D2] 1,250 mcg (50,000 unit) Capsule 50,000 unit PO WEEKLY 90 Days Qty: 90 3RF Rx Instructions: Takes every Friday PNV cmb#[id number]-ferrous fumarate-FA [] 28 mg iron- 800 mcg Tablet 1 tablet PO DAILY 90 Days Qty: 90 0RF valacyclovir [Valtrex] 500 mg Tablet 500 mg PO QHS 90 Days Qty: 90 3RF Follow-up/Referrals: PHYSICIAN,PROFESSOR OF COMMUNICATION [Primary Care Provider] -
[2025-03-05] MEDS: AMOXICILLIN/CLAVULANATE K 875-125 MG TAB 1 TABLET PO (22:27)
== END 2025-03-05 22:39 | disposition home or self-care (01) ==
PROVIDERS: Emergency Provider Emergency Medicine
DX: S51.851A Open bite of right forearm, initial encounter (principal); Z79.899 Other long term (current) drug therapy; Z79.3 Long term (current) use of hormonal contraceptives; W54.0XXA Bitten by dog, initial encounter
CPT/HCPCS: 99283; A9270